=== PATIENT | female | born 1940 | race Caucasian/White ===

== ENCOUNTER → 2017-10-01 | Outpatient (CLI) | payer MEDICARE, BC ==
--- NOTE | 2017-10-01 07:53 | CT ---
EXAMINATION TYPE: CT brain wo con DATE OF EXAM: 10/01/2017 HISTORY: Mild cognitive impairment per order. Change in memory and forgetfulness per patient. CT DLP: 1054.2 mGycm. Automated Exposure Control for Dose Reduction was Utilized. TECHNIQUE: CT scan of the head is performed without contrast. COMPARISON: None. FINDINGS: There is no acute intracranial hemorrhage or midline shift identified. There is diffuse v entricular and sulcal prominence consistent with diffuse age-related cerebral atrophy. There is low- attenuation in the periventricular presumed on basis of product of chronic small vessel ischemic johnson ge. Scleral calcification both globes is present. There is persistent anterior metopic suture parvez l variant. The paranasal sinuses are clear. No suspicious opacification mastoid air cells is present. IMPRESSION: No acute intracranial hemorrhage or midline shift. There is mild to moderate diffuse ag e-related cerebral atrophy and moderate chronic small vessel ischemic change noted.
== END | disposition home or self-care (01) ==
LOC: RADCTMAIN 07:12
PROVIDERS: ATTEND Internal Medicine
DX: G31.1 Senile degeneration of brain, not elsewhere classified (principal); I67.82 Cerebral ischemia
CPT/HCPCS: 70450

== ENCOUNTER → 2020-01-04 | Outpatient (CLI) | payer MEDICARE, BC ==
--- NOTE | 2020-01-04 16:19 | BD ---
EXAMINATION TYPE: Axial Bone Density DATE OF EXAM: 01/04/2020 COMPARISON: NONE CLINICAL HISTORY: 79-year-old female postmenopausal screening Height: 5 FT Weight: 12 FRAX RISK QUESTIONS: Alcohol (3 or more units per day): NO Family History (Parent hip fracture): NO Glucocorticoids (More than 3mos): NO (Ex: prednisone, prednisolone, methylprednisolone, dexamethasone, and hydrocortisone). History of Fracture in Adulthood: NO Secondary Osteoporosis: 1. Type 1 Diabetes: NO 2. Hyperthyroidism: NO 3. Menopause before 45: UNSURE 4. Malnutrition: NO 5. Chronic liver disease: NO Rheumatoid Arthritis: NO Current Tobacco Use: NO RISK FACTORS HISTORY OF: Family History of Osteoporosis: NO Active: YES Diet low in dairy products/other sources of calcium: NO Postmenopausal woman: UNSURE Take estrogen and/or progesterone medications: NONE Lost more than 2 inches in height since high school: NO MEDICATIONS: Additional Medications: NONE Additional History: EXAM MEASUREMENTS: Bone mineral densitometry was performed using the [employer] System. Bone mineral density as measured about the Lumbar spine is: ----- L1-L4(G/cm2): 0.999 T Score Values are as follows: ----- L2: -1.4 ----- L3: -1.3 ----- L4: -1.4 ----- L1-L4: -1.5 BASELINE Bone mineral density about the R hip (g/cm2): 0.747 Bone mineral density about the L hip (g/cm2): 0.772 T Score values are as follows: -----R Neck: -2.1 -----L Neck: -1.9 -----R Total: -1.6 -----L Total: -1.2 BASELINE IMPRESSION: Osteopenia (T Score between -2.5 and -1). There is slightly increased risk of fracture and the patient may be considered for treatment. Re-Screen 2-5 years. NOTE: T-SCORE=SD OF THE YOUNG ADULT MEAN.
--- NOTE | 2020-01-05 12:02 | MM ---
Reason for exam: screening (asymptomatic). Last mammogram was performed 7 years and 5 months ago. History: Patient is postmenopausal. Physical Findings: A clinical breast exam by your physician is recommended on an annual basis and results should be correlated with mammographic findings. MG 3D Screening Mammo W/Cad Bilateral CC and MLO view(s) were taken. Prior study comparison: August 03, 2012, mammogram, performed at [facility]. August 08, 2011, mammogram, performed at [facility]. The breast tissue is heterogeneously dense. This may lower the sensitivity of mammography. Finding #1: There is a 9 mm oval mass located 5 cm from the nipple in the upper outer quadrant, middle position of the left breast on MLO 17/51 and CC 18/57. Finding #2: There are typically benign vascular calcifications in both breasts. ASSESSMENT: Incomplete: need additional imaging evaluation, BI-RAD 0 RECOMMENDATION: Ultrasound of the left breast. [facility] will attempt to contact patient to return for ultrasound.
== END | disposition home or self-care (01) ==
LOC: RADMAMWWP 09:55
PROVIDERS: ATTEND Internal Medicine
DX: Z12.31 Encounter for screening mammogram for malignant neoplasm of breast (principal); M85.80 Other specified disorders of bone density and structure, unspecified site
CPT/HCPCS: 77063; 77067; 77080

== ENCOUNTER → 2020-01-06 | Outpatient (CLI) | payer MEDICARE, BC ==
--- NOTE | 2020-01-06 13:56 | USB ---
Reason for exam: additional evaluation requested from abnormal screening. History: Patient is postmenopausal. Physical Findings: Nurse did not find any significant physical abnormalities on exam. US Breast Workup Limited LT Technologist: Cara Garcia Left limited breast ultrasound including focal area of concern, retroareolar and axilla demonstrates a 0.4 x 0.6 x 0.3cm hypoechoic lesion at 2 o'clock. These results were verbally communicated with the patient and result sheet given to the patient on 01/06/20. ASSESSMENT: Benign, BI-RAD 2 RECOMMENDATION: Return to routine screening mammogram schedule for both breasts.
== END | disposition home or self-care (01) ==
LOC: RADUSWWP 12:47
PROVIDERS: ATTEND Internal Medicine
DX: R92.8 Other abnormal and inconclusive findings on diagnostic imaging of breast (principal)

== ENCOUNTER 2021-02-08 16:32 | Inpatient (IN) | payer MEDICARE, BC ==
[2021-02-08] MEDS ORDERED: DILTIAZEM 5 MG/ML 5 ML VIAL IVP STA (19:00)
[2021-02-08] MEDS ORDERED: HEPARIN SODIUM 1,000 UN/ML (10ML VL) IV PRN (19:06)
[2021-02-08] MEDS ORDERED: HEPARIN SODIUM 1,000 UN/ML (10ML VL) IV ONE (19:06)
--- NOTE | 2021-02-08 19:09 | XR ---
INDICATION: Patient age:Female; 80 years old; Reason for study: dysrhythmia; PHH. COMPARISON: None. TECHNIQUE: Frontal and lateral views of the chest. FINDINGS: Lungs/Pleura: There is no evidence of pleural effusion, focal consolidation, or pneumothorax. Pulmonary vascularity: Unremarkable. Heart/mediastinum: Cardiomediastinal silhouette is unremarkable. Musculoskeletal: No acute osseous pathology. IMPRESSION: No acute cardiopulmonary disease/process.
[2021-02-08] MEDS ORDERED: DILTIAZEM 125 MG in SODIUM CHLORIDE 0.9% 100 ML IV SCH (19:15)
[2021-02-08] MEDS ORDERED: HEPARIN SOD,PORK IN 0.45% NACL 25,000 UNIT in 0.45% NACL 1 250ML.BAG IV SCH (19:15)
[2021-02-08 19:20] LABS: Basophils # (A) 0.1 k/uL (0-0.2); Basophils % (A) 1 %; Eosinophils # (A) 0.1 k/uL (0-0.7); Eosinophils % (A) 2 %; HCT 46.8 % (34.0-46.0); HGB 15.1 gm/dL (11.4-16.0); Lymphocytes # (A) 2.1 k/uL (1.0-4.8); Lymphocytes % (A) 35 %; MCH 30.4 pg (25.0-35.0); MCHC 32.3 g/dL (31.0-37.0); MCV 94.1 fL (80.0-100.0); Mean Platelet Volume 7.4; Monocytes # (A) 0.2 k/uL (0-1.0); Monocytes % (A) 4 %; Neutrophils # (A) 3.4 k/uL (1.3-7.7); Neutrophils % (A) 57 %; Platelet Count 279 k/uL (150-450); RBC 4.97 m/uL (3.80-5.40); RDW 13.9 % (11.5-15.5); WBC 6.1 k/uL (3.8-10.6)
[2021-02-08 19:30] LABS: Albumin 4.5 g/dL (3.5-5.0); Calcium 9.9 mg/dL (8.4-10.2); Magnesium 1.9 mg/dL (1.6-2.3); Potassium 4.1 mmol/L (3.5-5.1); Total Bilirubin 0.3 mg/dL (0.2-1.3); Total Protein 7.4 g/dL (6.3-8.2)
[2021-02-08 19:32] LABS: Partial Thromboplastin Time 24.7 sec (22.0-30.0); Prothrombin Time 10.6 sec (9.0-12.0)
[2021-02-08] MEDS ORDERED: ACETAMINOPHEN TAB 325 MG TAB PO PRN (20:27)
[2021-02-08] MEDS ORDERED: NALOXONE 0.4 MG/ML 1 ML VIAL IV PRN (20:27)
[2021-02-08] MEDS ORDERED: ASPIRIN 81 MG PO STA (20:27)
[2021-02-08] MEDS ORDERED: DONEPEZIL 10 MG TAB PO SCH (21:00)
--- NOTE | 2021-02-08 21:16 | ED ---
General Adult HPI - General Chief complaint: Arrhythmia/Palpitations Stated complaint: Irregular HB Time Seen by Provider: 02/08/21 18:48 Source: patient, family, RN notes reviewed, old records reviewed Mode of arrival: ambulatory Limitations: no limitations - History of Present Illness Initial comments: Patient is an 80-year-old female with past medical history remarkable for hypertension, dementia, hyperlipidemia who presents emergency Department after being sent by her PCP for new onset atrial fibrillation with RVR. I evaluated the patient when she was placed in a room. She is no history of A. fib with RVR. She has no symptoms at this time. Denies any chest pain, shortness breath, abdominal pain, nausea, vomiting. Denies any lightheadedness, syncopal episodes. Patient presents with her states she does have some level of dementia. However patient appears to be alert and oriented 4 at this time. She is no other acute complaints at this time. Patient did received the Covid 19 vaccine. Denies any fevers, chills, cough. No history of blood clots in herself or family members. - Related Data Home Medications Medication Instructions Recorded Confirmed Aspirin EC [Ecotrin Low Dose] 81 mg PO DAILY 02/08/21 02/08/21 Atorvastatin [Lipitor] 20 mg PO DAILY 02/08/21 02/08/21 Benazepril [Lotensin] 10 mg PO DAILY 02/08/21 02/08/21 Cholecalciferol [Vitamin D3 (25 50 mcg PO DAILY 02/08/21 02/08/21 Mcg = 1000 Iu)] Donepezil HCl [Aricept] 10 mg PO HS 02/08/21 02/08/21 Metoprolol Tartrate 25 mg PO DAILY 02/08/21 02/08/21 Allergies Allergy/AdvReac Type Severity Reaction Status Date / Time No Known Allergies Allergy Verified 02/08/21 20:25 Review of Systems ROS Statement: Those systems with pertinent positive or pertinent negative responses have been documented in the HPI. Review of Systems: CONST: Denies fever EYES: Denies blurry vision ENT: Denies nasal congestion C/V: Denies Chest pain RESP: Denies shortness of breath GI: Denies abdominal pain : Denies dysuria SKIN: Denies rash. MSK: Denies joint pain. NEURO: Denies headache ROS Other: All systems not noted in ROS Statement are negative. Past Medical History Past Medical History: Dementia, Hyperlipidemia, Hypertension History of Any Multi-Drug Resistant Organisms: None Reported Additional Past Surgical History / Comment(s): carotid surgery Past Psychological History: No Psychological Hx Reported Smoking Status: Never smoker Past Alcohol Use History: None Reported Past Drug Use History: None Reported General Exam - General Exam Comments Initial Comments: General: Appears in no acute distress. HEAD: Normal with no signs of head trauma. EYES: PERRLA, EOMI, conjunctiva normal, no discharge. ENT: Hearing grossly intact, normal oropharynx. RESPIRATORY: Clear breath sounds bilaterally. No wheezes, rales, or rhonchi. C/V: Irregular rate and rhythm. S1 and S2 auscultated. Peripheral pulses are 2+ and intact throughout. No peripheral edema. ABD: Abd is soft, nontender, nondistended EXT: Normal range of motion, no obvious deformity SKIN: No rashes or lesions observed on exposed skin. NEURO: Alert and oriented 3-4. No focal deficits. Limitations: no limitations Course Vital Signs 02/08/21 02/08/21 02/08/21 17:55 19:09 21:06 Temperature 98 F Pulse Rate 144 H 110 H 133 H Respiratory 16 18 18 Rate Blood Pressure 165/89 159/88 151/82 O2 Sat by Pulse 98 96 96 Oximetry 02/08/21 02/08/21 22:26 23:20 Temperature Pulse Rate 146 H 140 H Respiratory 18 18 Rate Blood Pressure 172/105 119/97 O2 Sat by Pulse 97 95 Oximetry Medical Decision Making - Medical Decision Making Based on the patient's presentation and physical exam, I'm concerned for atrial fibrillation with RVR. EKG was immediately obtained when she was placed in a room and revealed atrial fibrillation with RVR. There is no signs of acute ischemia. We will obtain a cardiac workup on the patient as well as a d-dimer screen for PE for her new-onset afib. It is possible that the patient has been in atrial fibrillation for quite some time as she has been asymptomatic. We will also obtain a chest x-ray. She will be given aspirin. She'll be started o n a heparin drip as well as given 10 mg IV push Cardizem and started on a Cardizem drip with goal heart rates less than 110. Patient was in agreement this plan. EKG showed atrial fibrillation with RVR as described above. Cardizem bolus drop the patient's heart rate low 100. She remained relatively volatile with heart rates ranging anywhere from 80-140 intermittently. We will continue to increase the Cardizem drip with goal heart rates less than 110. Laboratory studies are remarkable for a normal d-dimer. Troponin is negative. We will continue to trend troponins. Negative Covid. Remainder the labs are unremarkable. Chest x-ray reveals no acute cardiopulmonary process. On reevaluation, patient is feeling improved. Heart rate is improved to 110 at this time. I discussed with family that she will be admitted to the hospital and patient and were in agreement this plan. Cardiology was consulted for evaluation of the patient tomorrow. I spoke with the admitting team under Dr. Peña who accepted the patient. Patient was admitted and serous condition to telemetry. I'll patient remained in the emergency department, after her left she to begin to and became more confused. Heart rates jumped back up into 140-150. However we were able to calm the patient down, and heart rates began to slowly improving trend back down over time. We'll continue to increase Cardizem drip as tolerated with goal heart rates less than 110. - Lab Data Result diagrams: 02/08/21 18:34 02/08/21 18:34 Lab Results 02/08/21 02/08/21 02/08/21 Range/Units 18:34 18:34 18:34 WBC 6.1 (3.8-10.6) k/uL RBC 4.97 (3.80-5.40) m/uL Hgb 15.1 (11.4-16.0) gm/dL Hct 46.8 H (34.0-46.0) % MCV 94.1 (80.0-100.0) fL MCH 30.4 (25.0-35.0) pg MCHC 32.3 (31.0-37.0) g/dL RDW 13.9 (11.5-15.5) % Plt Count 279 (150-450) k/uL MPV 7.4 Neutrophils % 57 % Lymphocytes % 35 % Monocytes % 4 % Eosinophils % 2 % Basophils % 1 % Neutrophils # 3.4 (1.3-7.7) k/uL Lymphocytes # 2.1 (1.0-4.8) k/uL Monocytes # 0.2 (0-1.0) k/uL Eosinophils # 0.1 (0-0.7) k/uL Basophils # 0.1 (0-0.2) k/uL PT 10.6 (9.0-12.0) sec INR 1.0 (<1.2) APTT 24.7 (22.0-30.0) sec D-Dimer 0.21 (<0.60) mg/L FEU Sodium 141 (137-145) mmol/L Potassium 4.1 (3.5-5.1) mmol/L Chloride 102 (98-107) mmol/L Carbon Dioxide 29 (22-30) mmol/L Anion Gap 10 mmol/L BUN 24 H (7-17) mg/dL Creatinine 0.88 (0.52-1.04) mg/dL Est GFR (CKD-EPI)AfAm 72 (>60 ml/min/1.73 sqM) Est GFR (CKD-EPI)NonAf 62 (>60 ml/min/1.73 sqM) Glucose 134 H (74-99) mg/dL Calcium 9.9 (8.4-10.2) mg/dL Magnesium 1.9 (1.6-2.3) mg/dL Total Bilirubin 0.3 (0.2-1.3) mg/dL AST 28 (14-36) U/L ALT 16 (4-34) U/L Alkaline Phosphatase 133 H (38-126) U/L Troponin I (0.000-0.034) ng/mL Total Protein 7.4 (6.3-8.2) g/dL Albumin 4.5 (3.5-5.0) g/dL 02/08/21 Range/Units 18:34 WBC (3.8-10.6) k/uL RBC (3.80-5.40) m/uL Hgb (11.4-16.0) gm/dL Hct (34.0-46.0) % MCV (80.0-100.0) fL MCH (25.0-35.0) pg MCHC (31.0-37.0) g/dL RDW (11.5-15.5) % Plt Count (150-450) k/uL MPV Neutrophils % % Lymphocytes % % Monocytes % % Eosinophils % % Basophils % % Neutrophils # (1.3-7.7) k/uL Lymphocytes # (1.0-4.8) k/uL Monocytes # (0-1.0) k/uL Eosinophils # (0-0.7) k/uL Basophils # (0-0.2) k/uL PT (9.0-12.0) sec INR (<1.2) APTT (22.0-30.0) sec D-Dimer (<0.60) mg/L FEU Sodium (137-145) mmol/L Potassium (3.5-5.1) mmol/L Chloride (98-107) mmol/L Carbon Dioxide (22-30) mmol/L Anion Gap mmol/L BUN (7-17) mg/dL Creatinine (0.52-1.04) mg/dL Est GFR (CKD-EPI)AfAm (>60 ml/min/1.73 sqM) Est GFR (CKD-EPI)NonAf (>60 ml/min/1.73 sqM) Glucose (74-99) mg/dL Calcium (8.4-10.2) mg/dL Magnesium (1.6-2.3) mg/dL Total Bilirubin (0.2-1.3) mg/dL AST (14-36) U/L ALT (4-34) U/L Alkaline Phosphatase (38-126) U/L Troponin I <0.012 (0.000-0.034) ng/mL Total Protein (6.3-8.2) g/dL Albumin (3.5-5.0) g/dL - EKG Data -: EKG Interpreted by Me EKG Comments: 12-lead Electrocardiogram Interpretation Note EKG was reviewed and interpreted by myself. 12-lead ECG performed at 1834 is interpreted by me as revealing atrial fibrillation with RVR at a rate of 148 beats per minute. [place] is normal. PA interval is unobtainable, QRS duration is 80 ms, QTc is 401 ms.. There were no ST or T wave abnormalities to suggest myocardial ischemia or injury. R wave progression across the precordium was satisfactory. By my interpretation this EKG is non-diagnostic for acute ischemia. This is concerning for new onset atrial fibrillation with RVR, the patient is no history. Critical Care Time Critical Care Time: Yes Total Critical Care Time: 35 Critical Care Time: Upon my evaluation, this patient had a high probability of imminent or life-t hreatening deterioration due to A. fib with RVR, which required my direct attention, intervention, and personal management. I have personally provided 35 minutes of critical care time exclusive of time spent on separately billable procedures. Time includes review of laboratory data, radiology results, discussion with consultants, and monitoring for potential decompensation. Interventions were performed as documented in my note. Disposition Clinical Impression: Atrial fibrillation with RVR, Dementia Disposition: ADMITTED IP TO THIS HOSP Condition: Serious
[2021-02-08] MEDS ORDERED: LORazepam 2 MG/ML INJ IV STA (22:16)
--- NOTE | 2021-02-09 01:38 | P.HPIM ---
History of Present Illness H&P Date: 02/08/21 Chief Complaint: A. fib with RVR 80-year-old female with dementia hypertension hyperlipidemia She has dementia and cannot provide any meaningful history. She currently tells me that she doesn't know where she is or how she got to the hospital. She recalls that she was visiting [facility] for some reason and she hasn't seen her for couple days and she went out looking for him and next thing she knows that she is at the hospital. However per ED documentation, patient was brought in by her as they were at their PCP office who was suspicious of A. fib with RVR this is a new diagnosis to the patient and recommended that she comes to the hospital for evaluation. Currently patient denies any chest pain or trouble breathing she denies any dizziness or lightheadedness she just went to the bathroom came back and her heart has jumped up into the 130s 140s range, she is currently on heparin drip and Cardizem drip Patient denies any GI bleeding denies any recent travel denies any history of blood clots denies any recent hospitalization or any active cancer diagnosis Review of Systems Pertinent positives as noted in HPI. All other systems were reviewed and are negative Past Medical History Past Medical History: Dementia, Hyperlipidemia, Hypertension History of Any Multi-Drug Resistant Organisms: None Reported Additional Past Surgical History / Comment(s): carotid surgery Past Psychological History: No Psychological Hx Reported Smoking Status: Never smoker Past Alcohol Use History: None Reported Past Drug Use History: None Reported - Past Family History Family Family Medical History: No Reported History Medications and Allergies Home Medications Medication Instructions Recorded Confirmed Type Aspirin EC [Ecotrin Low Dose] 81 mg PO DAILY 02/08/21 02/08/21 History Atorvastatin [Lipitor] 20 mg PO DAILY 02/08/21 02/08/21 History Benazepril [Lotensin] 10 mg PO DAILY 02/08/21 02/08/21 History Cholecalciferol [Vitamin D3 (25 50 mcg PO DAILY 02/08/21 02/08/21 History Mcg = 1000 Iu)] Donepezil HCl [Aricept] 10 mg PO HS 02/08/21 02/08/21 History Metoprolol Tartrate 25 mg PO DAILY 02/08/21 02/08/21 History Allergies Allergy/AdvReac Type Severity Reaction Status Date / Time No Known Allergies Allergy Verified 02/08/21 20:25 Physical Exam Vitals: Vital Signs Temp Pulse Resp BP Pulse Ox 02/08/21 19:09 110 H 18 159/88 96 02/08/21 17:55 98 F 144 H 16 165/89 98 Intake and Output 02/08/21 02/08/21 02/08/21 06:59 14:59 22:59 Other: Weight 60.328 kg Constitutional: No acute distress, conversant, pleasant Eyes: Anicteric sclerae, moist conjunctiva, Pupils equal round reactive to light ENMT: NC/AT Oropharynx clear, no erythema, or exudates Neck: Supple, FROM, no masses, or JVD No carotid bruits No thyromegaly Lungs: Clear to auscultation Clear to percussion Normal respiratory effort, no accessory muscle use Cardiovascular: Heart irregular No murmurs, gallops, or rubs No peripheral edema Abdominal: Soft Nontender, no guarding, rebound or rigidity Abdomen moving with respiration Normoactive bowel sounds No hepatomegaly, No splenomegaly No palpable mass No abdominal wall hernia noted Skin: Normal temperature, tone, texture, turgor No induration No subcutaneous nodules No rash, lesions No ulcers Extremities: No digital cyanosis No clubbing Pedal pulses intact and symmetrical Radial pulses intact and symmetrical No calf tenderness Psychiatric: Alert and oriented to person, only Neuro Muscles Strength 4/5 in all 4 extremities Sensation to light touch grossly present throughout Cranial nerves II-XII grossly intact No focal sensory deficits Lymphatics: no palpable cervical or supraclavicular , or inguinal lymph nodes Results CBC & Chem 7: 02/08/21 18:34 02/08/21 18:34 Labs: Abnormal Lab Results - Last 24 Hours (Table) 02/08/21 02/08/21 Range/Units 18:34 18:34 Hct 46.8 H (34.0-46.0) % BUN 24 H (7-17) mg/dL Glucose 134 H (74-99) mg/dL Alkaline Phosphatase 133 H (38-126) U/L Assessment and Plan Assessment: New onset A. fib with RVR Check echocardiogram Check thyroid function Cardiology consult Currently on heparin drip and Cardizem drip Check lipid profile D-dimer within normal limits Cardiac telemetry IV fluid hydration normal saline Chronic conditions Hypertension resume blood pressure medications Dementia Hyperlipidemia Resume home medications She is full code DVT Prophylaxis currently on heparin drip for A. fib with RVR Anticipated length of stay less than 2 midnights
[2021-02-09 04:38] VITALS: RESP 18
[2021-02-09 07:06] LABS: Basophils # (A) 0.1 k/uL (0-0.2); Basophils % (A) 1 %; Eosinophils # (A) 0.1 k/uL (0-0.7); Eosinophils % (A) 1 %; HCT 41.7 % (34.0-46.0); HGB 13.3 gm/dL (11.4-16.0); Lymphocytes # (A) 2.4 k/uL (1.0-4.8); Lymphocytes % (A) 35 %; MCH 30.1 pg (25.0-35.0); MCHC 31.9 g/dL (31.0-37.0); MCV 94.4 fL (80.0-100.0); Mean Platelet Volume 7.6; Monocytes # (A) 0.3 k/uL (0-1.0); Monocytes % (A) 5 %; Neutrophils # (A) 3.7 k/uL (1.3-7.7); Neutrophils % (A) 56 %; Platelet Count 230 k/uL (150-450); RBC 4.42 m/uL (3.80-5.40); WBC 6.7 k/uL (3.8-10.6)
[2021-02-09 07:13] LABS: Calcium 9.4 mg/dL (8.4-10.2); Magnesium 1.8 mg/dL (1.6-2.3); Potassium 4.1 mmol/L (3.5-5.1)
[2021-02-09 07:22] LABS: Prothrombin Time 11.1 sec (9.0-12.0)
[2021-02-09] MEDS ORDERED: METOPROLOL SUCCINATE (ER) 50 MG TAB.ER.24H PO SCH (09:00)
[2021-02-09] MEDS ORDERED: ATORVASTATIN 20 MG TAB PO SCH (09:00)
[2021-02-09] MEDS ORDERED: ASPIRIN 81 MG PO SCH (09:00)
[2021-02-09] MEDS ORDERED: lisinopriL 10 MG TAB PO SCH (09:00)
[2021-02-09] MEDS ORDERED: METOPROLOL TARTRATE 25 MG TAB PO SCH (09:00)
--- NOTE | 2021-02-09 09:35 | P.CRDCN ---
History of Present Illness Consult date: 02/09/21 History of present illness: HISTORY OF PRESENT ILLNESS: This is a 80-year-old female with a past medical history significant for hypertension, hyperlipidemia, and dementia. 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 We have been asked to see the patient in consultation for A. fib with RVR. Patient examined at the bedside in the emergency room. Patient has awake and alert at the time of examination. However she is confused. She thinks she is at home. She thinks she lives with her mom and dad. She is unsure of the date. She does not know why she is in the hospital and does not remember coming to the hospital yesterday. Apparently the patient was brought to the hospital with her after being directed to come to the emergency room by her primary care physician for new onset atrial fibrillation with RVR. EKG completed upon arrival to the emergency room revealed atrial fibrillation with RVR. The patient does not have a history of atrial fib relation. The patient was started on IV heparin and IV Cardizem. She has since converted to sinus mechanism with a heart rate in the 80s. The patient denies any chest pain or pressure. She denies shortness of breath. She currently denies palpitations. She does report that she thinks she had some palpitations yesterday. She denies frequent falls at home. Denies history of GI bleeding. EKG reveals A. fib with RVR. Telemetry this morning reveals sinus mechanism. Chest xray negative for acute process. Laboratory data: WBC 6.7. Hemoglobin 13.3. Platelet count 230. D-dimer 0.21. Sodium 139. Potassium 4.1. BUN 19. Creatinine 0.77. Magnesium 1.8. Troponin negative 3. Current home cardiac medications include metoprolol tartrate 25 mg daily, aspirin 81 mg daily, Benzapril 10 mg daily, Lipitor 20 mg daily REVIEW OF SYSTEMS: At the time of my exam: CONSTITUTIONAL: Denies fever or chills. HEENT: Denies blurred vision, vision changes, or eye pain. Denies hemoptysis CARDIOVASCULAR: Denies chest pain. Denies orthopnea. Denies PND. Denies palpitations RESPIRATORY: Denies shortness of breath. GASTROINTESTINAL: Denies abdominal pain. Denies nausea or vomiting. HEMATOLOGIC: Denies bleeding disorders. GENITOURINARY: Denies any blood in urine. SKIN: Denies pruitis. Denies rash. PHYSICAL EXAM: VITAL SIGNS: Reviewed. GENERAL: Well-developed in no acute distress. HEENT: Head is normocephalic. Pupils are equal, round. Sclerae anicteric. Mucous membranes of the mouth are moist. Neck supple. No JVD or thyromegaly LUNGS: Respirations even and unlabored. Lungs essentially clear to auscultation bilaterally. HEART: Regular rate and rhythm. S1 and S2 heard. ABDOMEN: Soft. Nondistended. Nontender. EXTREMITIES: Normal range of motion. No clubbing or cyanosis. Peripheral pulses intact. No lower extremity edema NEUROLOGIC: Awake and alert. Oriented x 0. ASSESSMENT: New onset paroxysmal atrial fibrillation with RVR Hypertension Hyperlipidemia Dementia PLAN: Obtain 2D echo to assess cardiac structure and function Discontinue IV heparin Begin Eliquis 2.5 mg twice a day. Case management consulted for insurance coverage Discontinue IV Cardizem Begin metoprolol succinate 50 mg daily Check TSH Patient may be discharged home this afternoon from a cardiac standpoint if her echo does not reveal any significant abnormalities Patient to follow up outpatient with Dr. Page Nurse practitioner note has been reviewed by physician. Signing provider agrees with the documented findings, assessment, and plan of care. Past Medical History Past Medical History: Dementia, Hyperlipidemia, Hypertension History of Any Multi-Drug Resistant Organisms: None Reported Additional Past Surgical History / Comment(s): carotid surgery Past Psychological History: No Psychological Hx Reported Smoking Status: Never smoker Past Alcohol Use History: None Reported Past Drug Use History: None Reported - Past Family History Family Family Medical History: No Reported History Medications and Allergies Home Medications Medication Instructions Recorded Confirmed Type Aspirin EC [Ecotrin Low Dose] 81 mg PO DAILY 02/08/21 02/08/21 History Atorvastatin [Lipitor] 20 mg PO DAILY 02/08/21 02/08/21 History Benazepril [Lotensin] 10 mg PO DAILY 02/08/21 02/08/21 History Cholecalciferol [Vitamin D3 (25 50 mcg PO DAILY 02/08/21 02/08/21 History Mcg = 1000 Iu)] Donepezil HCl [Aricept] 10 mg PO HS 02/08/21 02/08/21 History Metoprolol Tartrate 25 mg PO DAILY 02/08/21 02/08/21 History Apixaban [Eliquis] 5 mg PO BID #60 tab 02/09/21 Rx Allergies Allergy/AdvReac Type Severity Reaction Status Date / Time No Known Allergies Allergy Verified 02/08/21 20:25 Physical Exam Vitals: Vital Signs Temp Pulse Pulse Resp BP BP Pulse Ox 02/09/21 04:00 97.6 F 72 18 127/72 95 02/09/21 02:00 137 H 16 02/09/21 00:00 144 H 17 138/76 93 L 02/08/21 23:20 140 H 18 119/97 95 02/08/21 22:26 146 H 18 172/105 97 02/08/21 21:06 133 H 18 151/82 96 02/08/21 19:09 110 H 18 159/88 96 02/08/21 17:55 98 F 144 H 16 165/89 98 Intake and Output 02/08/21 02/09/21 02/09/21 22:59 06:59 14:59 Intake Total 16.083 68.842 Balance 16.083 68.842 Intake: Intake, IV Titration 16.083 68.842 Amount Diltiazem 125 mg In 16.083 9 Sodium Chloride 0.9% 100 ml @ Per Protocol IV .Q0M [facility] Rx#:[id number] Heparin Sod,Pork in 0.45% 59.842 NaCl 25,000 unit In 0.45 % NaCl 1 250ml.bag @ 12 UNITS/KG/HR 7.239 mls/hr IV .Q24H [facility] Rx#: [id number] Other: Voiding Method Toilet # Voids 1 Weight 60.328 kg Results 02/09/21 06:17 02/09/21 06:17 Cardiac Enzymes 02/08/21 02/08/21 02/08/21 Range/Units 18:34 18:34 20:47 AST 28 (14-36) U/L Troponin I <0.012 <0.012 (0.000-0.034) ng/mL 02/09/21 Range/Units 01:25 AST (14-36) U/L Troponin I <0.012 (0.000-0.034) ng/mL Coagulation 02/08/21 02/09/21 02/09/21 Range/Units 18:34 01:25 06:17 PT 10.6 11.1 (9.0-12.0) sec APTT 24.7 98.9 H (22.0-30.0) sec CBC 02/08/21 02/09/21 Range/Units 18:34 06:17 WBC 6.1 6.7 (3.8-10.6) k/uL RBC 4.97 4.42 (3.80-5.40) m/uL Hgb 15.1 13.3 (11.4-16.0) gm/dL Hct 46.8 H 41.7 (34.0-46.0) % Plt Count 279 230 (150-450) k/uL Comprehensive Metabolic Panel 02/08/21 02/09/21 Range/Units 18:34 06:17 Sodium 141 139 (137-145) mmol/L Potassium 4.1 4.1 (3.5-5.1) mmol/L Chloride 102 107 (98-107) mmol/L Carbon Dioxide 29 28 (22-30) mmol/L BUN 24 H 19 H (7-17) mg/dL Creatinine 0.88 0.77 (0.52-1.04) mg/dL Glucose 134 H 93 (74-99) mg/dL Calcium 9.9 9.4 (8.4-10.2) mg/dL AST 28 (14-36) U/L ALT 16 (4-34) U/L Alkaline Phosphatase 133 H (38-126) U/L Total Protein 7.4 (6.3-8.2) g/dL Albumin 4.5 (3.5-5.0) g/dL Current Medications Generic Name Dose Route Start Last Admin Trade Name Freq PRN Reason Stop Dose Admin Acetaminophen 650 mg 02/08/21 20:27 Acetaminophen Tab 325 Mg Tab PO Q6HR PRN Mild Pain or Fever > 100.5 Aspirin 81 mg 02/09/21 09:00 Aspirin 81 Mg PO DAILY [facility] Atorvastatin Calcium 20 mg 02/09/21 09:00 Atorvastatin 20 Mg Tab PO DAILY [facility] Donepezil HCl 10 mg 02/08/21 21:00 02/08/21 22:28 Donepezil 10 Mg Tab PO 10 mg HS [facility] Administration Heparin Sodium (Porcine) 0 unit 02/08/21 19:06 Heparin Sodium 1,000 Un/Ml (10ml Vl) IV PER PROTOCOL PRN Low PTT Protocol Diltiazem HCl 125 mg/ Sodium 125 mls @ 0 mls/hr 02/08/21 19:15 02/08/21 23:21 Chloride IV 12.5 mls/hr .Q0M [facility] 12.5 mls/hr Titration Protocol Per Protocol Heparin Sodium/Sodium Chloride 250 mls @ 7.239 mls/hr 02/08/21 19:15 02/09/21 05:28 25,000 unit/ Sodium Chloride IV 9 units/kg/hr .Q24H [facility] 5.43 mls/hr Titration Protocol 12 UNITS/KG/HR Naloxone HCl 0.2 mg 02/08/21 20:27 Naloxone 0.4 Mg/Ml 1 Ml Vial IV Q2M PRN Opioid Reversal Intake and Output 02/08/21 02/09/21 02/09/21 22:59 06:59 14:59 Intake Total 16.083 68.842 Balance 16.083 68.842 Intake: Intake, IV Titration 16.083 68.842 Amount Diltiazem 125 mg In 16.083 9 Sodium Chloride 0.9% 100 ml @ Per Protocol IV .Q0M [facility] Rx#:[id number] Heparin Sod,Pork in 0.45% 59.842 NaCl 25,000 unit In 0.45 % NaCl 1 250ml.bag @ 12 UNITS/KG/HR 7.239 mls/hr IV .Q24H [facility] Rx#: [id number] Other: Voiding Method Toilet # Voids 1 Weight 60.328 kg 02/09/21 06:17 02/09/21 06:17
[2021-02-09] MEDS ORDERED: APIXABAN 2.5 MG TABLET PO SCH (09:45)
--- NOTE | 2021-02-09 12:39 | ECHOF ---
Referral Reason:LV function, new onset afib MEASUREMENTS -------- HEIGHT: 152.4 cm WEIGHT: 60.3 kg BP: IVSd: 1.0 cm (0.6 - 1.1) LVIDd: 3.4 cm (3.9 - 5.3) LVPWd: 1.1 cm (0.6 - 1.1) EDV(Teich): 48 ml IVSs: 1.6 cm LVIDs: 1.3 cm LVPWs: 1.3 cm %IVS Thck: 56 % ESV(Teich): 4 ml EF(Teich): 91 % %FS: 62 % SV(Teich): 44 ml RVIDd: 1.5 cm (< 3.3) LALs A4C: 4.8 cm LAAs A4C: 16.8 cm LAESV A-L A4C: 50 ml LAESV MOD A4C: 46 ml LALs A2C: 4.8 cm LAAs A2C: 15.8 cm LAESV A-L A2C: 44 ml LAESV MOD A2C: 42 ml LAESV(A-L): 47 ml Ao Diam: 2.4 cm (2.0 - 3.7) LA Diam: 3.3 cm (2.7 - 3.8) AV Cusp: 1.3 cm (1.5 - 2.6) EPSS: 0.5 cm MV E Xiang: 1.35 m/s MV DecT: 230 ms MV Dec [place]: 5.8 m/s MV A Xiang: 0.93 m/s MV E/A Ratio: 1.45 MV PHT: 67 ms MR Vmax: 2.36 m/s MR maxP.25 mmHg LVOT Vmax: 1.13 m/s LVOT maxP.13 mmHg AV Vmax: 1.99 m/s AV maxP.01 mmHg AV Vmax: 1.59 m/s AV Vmean: 1.15 m/s AV maxP.34 mmHg AV meanP.76 mmHg AV Env.Ti: 315 ms AV VTI: 36.2 cm TR Vmax: 2.59 m/s TR maxP.78 mmHg RAP: 5.00 mmHg RVSP: 31.78 mmHg MV EF SLOPE: 239.79 mm/s (70 - 150) MV EXCURSION: 11.84 mm (> 18.000) FINDINGS -------- Atrial fibrillation. This was a technically good study. The left ventricular size is normal. Left ventricular wall thickness is normal. Overall left vent ricular systolic function is normal with, an EF between 55 - 60 %. Normal LAP Grade 1 Diastolic Dys function. The right ventricle is normal in size. The left atrial size is normal. Normal LA size by volume 22+/-6 ml/m2. The right atrial size is normal. Aortic valve is trileaflet and is mildly thickened. There is mild aortic stenosis present. Peak/m misty gradient across the Aortic Valve is 13.34mmHg / 7.76mmHg. The mitral valve is normal. The mitral valve leaflets are mildly thickened. Mild mitral regurgita tion is present. The tricuspid valve appears structurally normal. Mild tricuspid regurgitation present. Right vent ricular systolic pressure is normal at < 35 mmHg. There is no pulmonic regurgitation present. The aortic root size is normal. IVC Not well visulized. There is a trivial pericardial effusion present. CONCLUSIONS -------- 1. The left ventricular size is normal. 2. Left ventricular wall thickness is normal. 3. Overall left ventricular systolic function is normal with, an EF between 55 - 60 %. 4. Normal LAP Grade 1 Diastolic Dysfunction. 5. Aortic valve is trileaflet and is mildly thickened. 6. There is mild aortic stenosis present. 7. Peak/mean gradient across the Aortic Valve is 13.34mmHg / 7.76mmHg. 8. The mitral valve leaflets are mildly thickened. 9. Mild mitral regurgitation is present. 10. Mild tricuspid regurgitation present. 11. There is a trivial pericardial effusion present. FEEDER CATCHER: Sariah Farias RDCS
[2021-02-09 15:20] VITALS: BP 128/69; PULSE 60; TEMP 98.2
--- NOTE | 2021-02-09 15:21 | P.DS ---
Providers Date of admission: 02/08/21 20:27 Expected date of discharge: 02/09/21 Attending physician: Shantanu Peña MD Consults: 02/08/21 20:28 Consult Physician Routine Consulting Provider: [facility] Consult Reason/Comments: new onset afib with rvr Do you want consulting provider notified?: Yes, Notify in am Primary care physician: Efrain Dennis MD Hospital Course: 80-year-old female with dementia hypertension hyperlipidemia was brought in by her as they were at their PCP office who was suspicious of A. fib with RVR this is a new diagnosis to the patient and recommended that she comes to the hospital for evaluation. New onset A. fib with RVR Cardiology consulted. Pt placed on dilt gtt and heparin gtt. TSH was normal. Echo with normal EF, no WMA, mild valvular disease. Hep gtt transitioned to eliquis. Dilt gtt d/c'd after patient converted to NSR with PACs, and her home metoprolol tartrate was replaced with succinate and dose increased to 50mg. Pt discharged home with home care services and PCP/Cardiology f/u. Chronic conditions Hypertension resumed blood pressure medications on discharge Dementia Hyperlipidemia Resumed home medications on discharge with changes noted above. Assessment: Gen: awake, alert HEENT: normocephalic, atraumatic, good hearing acuity, moist mucous membranes Resp: good air exchange, breathing comfortably with no accessory muscle use CVS: good distal perfusion x 4, irregular rhythm GI: soft, NTTP, ND : no SPT, no CVAT, crespo catheter not present MSK: no pitting edema, no clubbing Neuro: non-focal, moving all extremities Psych: cooperative, euthymic mood Patient Condition at Discharge: Good Plan - Discharge Summary Discharge Rx Participant: No New Discharge Prescriptions: New Metoprolol Succinate (ER) [Toprol XL] 50 mg PO DAILY #30 tablet Apixaban [Eliquis] 2.5 mg PO BID #60 tab Continue Cholecalciferol [Vitamin D3 (25 Mcg = 1000 Iu)] 50 mcg PO DAILY Aspirin EC [Ecotrin Low Dose] 81 mg PO DAILY Donepezil HCl [Aricept] 10 mg PO HS Atorvastatin [Lipitor] 20 mg PO DAILY Benazepril [Lotensin] 10 mg PO DAILY Discontinued Metoprolol Tartrate 25 mg PO DAILY Discharge Medication List Aspirin EC [Ecotrin Low Dose] 81 mg PO DAILY 02/08/21 [History] Atorvastatin [Lipitor] 20 mg PO DAILY 02/08/21 [History] Benazepril [Lotensin] 10 mg PO DAILY 02/08/21 [History] Cholecalciferol [Vitamin D3 (25 Mcg = 1000 Iu)] 50 mcg PO DAILY 02/08/21 [History] Donepezil HCl [Aricept] 10 mg PO HS 02/08/21 [History] Apixaban [Eliquis] 2.5 mg PO BID #60 tab 02/09/21 [Rx] Metoprolol Succinate (ER) [Toprol XL] 50 mg PO DAILY #30 tablet 02/09/21 [Rx] Follow up Appointment(s)/Referral(s): Satnam Page MD [STAFF PHYSICIAN] - [facility], [NON-STAFF] - Activity/Diet/Wound Care/Special Instructions: DAYNE quintana will apply a free coupon for Eliquis for 1 month, after that your copay is $400. Speak with your microsoft application developer about other options before you run out of your free month of eliquis. Discharge Disposition: HOME WITH HOME HEALTH SERVICES
== END 2021-02-09 16:19 | disposition home health service (06) | DRG 310 ==
LOC: EC 16:32 → 3SCARD 20:27
PROVIDERS: ADMIT Internal Medicine; ATTEND Internal Medicine
DX: I48.0 Paroxysmal atrial fibrillation (principal); E78.5 Hyperlipidemia, unspecified; F03.90 Unspecified dementia, unspecified severity, without behavioral disturbance, psychotic disturbance, mood disturbance, and anxiety; I10 Essential (primary) hypertension; Z20.822 Contact with and (suspected) exposure to COVID-19; Z79.01 Long term (current) use of anticoagulants; Z79.82 Long term (current) use of aspirin; Z79.899 Other long term (current) drug therapy
CPT/HCPCS: 36415; 71046; 80048; 80053; 83735; 84443; 84484; 85025; 85379; 85610; 85730; 87635; 93005; 93306; 96365; 96366; 96368; 96375; 99291

== ENCOUNTER → 2021-03-13 | Outpatient (CLI) | payer MEDICARE, BC ==
--- NOTE | 2021-03-15 11:12 | MM ---
Reason for exam: screening (asymptomatic). Last mammogram was performed 1 year and 2 months ago. History: Patient is postmenopausal. Physical Findings: A clinical breast exam by your physician is recommended on an annual basis and results should be correlated with mammographic findings. MG 3D Screening Mammo W/Cad Bilateral CC and MLO view(s) were taken. Prior study comparison: January 04, 2020, bilateral MG 3d screening mammo w/cad. The breast tissue is heterogeneously dense. This may lower the sensitivity of mammography. There is chronic nodularity in the left upper outer quadrant. No significant changes when compared with prior studies. ASSESSMENT: Negative, BI-RAD 1 RECOMMENDATION: Routine screening mammogram of both breasts in 1 year.
== END | disposition home or self-care (01) ==
LOC: RADMAMWWP 06:59
PROVIDERS: ATTEND Internal Medicine
DX: Z12.31 Encounter for screening mammogram for malignant neoplasm of breast (principal)
CPT/HCPCS: 77063; 77067

== ENCOUNTER → 2021-04-05 | Outpatient (CLI) | payer MEDICARE, BC ==
--- NOTE | 2021-04-05 12:17 | XR ---
EXAMINATION TYPE: XR chest 2V DATE OF EXAM: 04/05/2021 COMPARISON: Chest x-ray February 08, 2021 HISTORY: Confusion and weakness. TECHNIQUE: Frontal and lateral views of the chest are obtained. FINDINGS: There is no focal air space opacity, pleural effusion, or pneumothorax seen. The cardiac silhouette size is now mildly enlarged. The osseous structures are intact. IMPRESSION: Mild cardiomegaly without acute pulmonary process.
== END | disposition home or self-care (01) ==
LOC: RADXRMAIN 11:43
PROVIDERS: ATTEND Internal Medicine
DX: I51.7 Cardiomegaly (principal)
CPT/HCPCS: 71046

== ENCOUNTER → 2022-03-07 | Day surgery (SDC) | payer MEDICARE, BC ==
[~2022-03-07] MED LIST: LIDOCAINE 2% INJ 20 MG/ML (2 ML VIAL) ONE; PROPOFOL 10 MG/ML 20 ML VIAL IV ONE; SODIUM CHLORIDE 0.9% 1,000 ML IV SCH
[2022-03-07 11:23] VITALS: RESP 16; TEMP 98.4
--- NOTE | 2022-03-07 12:27 | P.PCN ---
Date of Procedure: 03/07/22 Operative Findings: TRANSESOPHAGEAL ECHOCARDIOGRAM STILL OPERATOR BATCH OR CONTINUOUS: RADHA HARRIS MD, RPVI INDICATION: Rule out intracardiac thrombus before cardioversion SEDATION: Conscious sedation COMPLICATION: None LEVEL OF SEDATION The procedure was performed under general anesthesia PROCEDURE DESCRIPTION: After obtaining an informed consent, the patient was brought to recovery room. Pulse oximetry and heart monitors were attached to the patient. The patient throat was sprayed using lidocaine. The patient was turned into left lateral position. After that a bite guard was placed. After an appropriate conscious sedation was initiated, the transesophageal echocardiogram was advanced through a bite guard into the mid esophagus. A 2-D echocardiogram images, color Doppler images, continuous wave images, pulse-wave images, of various cardiac structure were performed. After that the transesophageal echocardiogram probe was advanced into the stomach and fixed to obtain transgastric view was. The probe was brought into the mid esophagus. Inter-atrial septum was interrogated using 2D images, color Doppler images, and then contrast study. After that transesophageal echocardiogram was withdrawn out and upon withdrawing the descending thoracic aorta all the way up to the arch was evaluated. FINDING: Left ventricular systolic function appeared to be mildly impaired was EF between 40-45%. The right ventricle appeared to be of normal size and function. The left atrium and right atrium are severely dilated. The left atrial appendage appeared to be free from any thrombus. The interatrial septum appeared to be in tact. The aortic valve is trileaflet valve with no stenosis with mild insufficiency. The mitral valve seems to be mildly thickened with evidence of moderate mitral regurgitation. There is moderate tricuspid regurgitation seen. CONCLUSION: 1. Intact left atrial appendage. Intact interatrial septum 2. Severe biatrial enlargement 3. Mildly impaired LV function with EF between 40-45% 4. Thickened mitral valve leaflets with moderate mitral regurgitation 5. Moderate tricuspid regurgitation 6. Mild aortic insufficiency
--- NOTE | 2022-03-07 12:28 | P.PCN ---
Date of Procedure: 03/07/22 Operative Findings: Cardioversion Report Performing physician Satnam Page M.D. Procedure performed Successful cardioversion of atrial fibrillation to normal sinus mechanism using 200 J at first attempt Indication Symptomatic atrial fibrillation Complication None Level of sedation The procedure was performed under deep sedation using propofol with INSURANCE DEFENSE PARALEGAL in the room Procedure description After obtaining an informed consent the patient was brought to the recovery room. Sedation was introduced using propofol with INSURANCE DEFENSE PARALEGAL in the room. Transesophageal echocardiogram was performed and intracardiac thrombus was ruled out Subsequently the patient cardioverted from atrial fibrillation to normal sinus mechanism using 200 J and first attempt Conclusion Successful cardioversion of atrial fibrillation to normal sinus mechanism using 200 J Postprocedure management Continue the current medical regimen Continue oral anticoagulation Follow-up with the patient
[2022-03-07 16:05] VITALS: BP 160/78; PULSE 66
== END ==
LOC: CATHCVL 10:43
PROVIDERS: ATTEND Internal Medicine Interventional Cardiology
DX: I08.1 Rheumatic disorders of both mitral and tricuspid valves (principal); I48.91 Unspecified atrial fibrillation; I10 Essential (primary) hypertension; E78.5 Hyperlipidemia, unspecified; F17.210 Nicotine dependence, cigarettes, uncomplicated
CPT/HCPCS: 93312; 93320; 93325; 92960; J2704; J2001

== ENCOUNTER 2022-06-17 15:56 | Emergency (ER) | payer MEDICARE, BC ==
[2022-06-17] MEDS ORDERED: SODIUM CHLORIDE 0.9% 500 ML 500 ML IV STA (17:28)
[2022-06-17] MEDS ORDERED: SODIUM CHLORIDE 0.9% 1,000 ML IV STA (17:28)
[2022-06-17] MEDS ORDERED: ACETAMINOPHEN TAB 325 MG TAB PO STA (17:28)
--- NOTE | 2022-06-17 17:33 | ED ---
General Adult HPI - General Chief complaint: Dizziness Stated complaint: weakness,altered mental Time Seen by Provider: 06/17/22 17:05 Source: patient Mode of arrival: wheelchair Limitations: no limitations - History of Present Illness Initial comments: This patient is an 82-year-old woman who is here to have evaluation after she was somewhat unsteady with walking at home today and her appetite was decreased. His history is given by the patient's partner who is here with her. When I interview the patient, she states that she is feeling well. She denies chest pain, back pain, abdominal pain. No dyspnea or cough. No problems with urination or bowel movements. Fever is reportedly found in triage area the patient is not aware that she has had a fever and she has not experienced chills. -: hour(s) Severity scale (1-10): 0 Improves with: none Worsens with: none Associated Symptoms: other Treatments Prior to Arrival: none - Related Data Home Medications Medication Instructions Recorded Confirmed Atorvastatin [Lipitor] 20 mg PO HS 02/08/21 06/17/22 Benazepril [Lotensin] 10 mg PO HS 02/08/21 06/17/22 Cholecalciferol [Vitamin D3 (25 50 mcg PO DAILY 02/08/21 06/17/22 Mcg = 1000 Iu)] Memantine HCl 10 mg PO BID 03/06/22 06/17/22 Donepezil 23mg 23 mg PO HS 06/17/22 06/17/22 Previous Rx's Medication Instructions Recorded Apixaban [Eliquis] 2.5 mg PO BID #60 tab 02/09/21 Metoprolol Succinate (ER) [Toprol 50 mg PO DAILY #30 tablet 02/09/21 XL] Allergies Allergy/AdvReac Type Severity Reaction Status Date / Time No Known Allergies Allergy Verified 06/17/22 17:35 Review of Systems ROS Statement: Those systems with pertinent positive or pertinent negative responses have been documented in the HPI. ROS Other: All systems not noted in ROS Statement are negative. Constitutional: Denies: fever, chills Respiratory: Denies: cough, dyspnea Cardiovascular: Denies: chest pain, syncope Gastrointestinal: Denies: abdominal pain, vomiting, diarrhea Genitourinary: Denies: dysuria Musculoskeletal: Denies: back pain Skin: Denies: rash Neurological: Denies: headache, weakness Past Medical History Past Medical History: Atrial Fibrillation, Dementia, Hyperlipidemia, Hypertension, Syncope, Vascular Disorder Additional Past Medical History / Comment(s): episode of passing out briefly last year, unsure of cause History of Any Multi-Drug Resistant Organisms: None Reported Past Surgical History: Hysterectomy Additional Past Surgical History / Comment(s): R carotid endartectomy, colonoscopy Past Anesthesia/Blood Transfusion Reactions: No Reported Reaction Past Psychological History: No Psychological Hx Reported Smoking Status: Former smoker Past Alcohol Use History: None Reported Past Drug Use History: None Reported - Past Family History Father Additional Family Medical History / Comment(s): Heart problems/blood clot, at the age of 84 yrs. Mother Family Medical History: No Reported History Additional Family Medical History / Comment(s): Mother lived to be 93 yrs old. Family Family Medical History: No Reported History General Exam Limitations: no limitations General appearance: alert, in no apparent distress Head exam: Present: atraumatic, normocephalic Eye exam: Present: normal appearance Neck exam: Present: normal inspection, full ROM. Absent: meningismus Respiratory exam: Present: normal lung sounds bilaterally. Absent: respiratory distress, wheezes, rales, rhonchi, stridor Cardiovascular Exam: Present: tachycardia (Rate approximately 132 at my exam), irregular rhythm, normal heart sounds. Absent: systolic murmur, diastolic murmur, rubs, gallop GI/Abdominal exam: Present: soft. Absent: distended, tenderness, guarding, rebound, rigid, mass Extremities exam: Present: normal inspection, normal capillary refill. Absent: pedal edema, calf tenderness Back exam: Present: normal inspection. Absent: CVA tenderness (R), CVA tenderness (L) Neurological exam: Present: alert, CN II-XII intact. Absent: oriented X3 (Patient is disoriented to date.), motor sensory deficit Skin exam: Present: warm, dry, intact, normal color. Absent: rash Course Vital Signs 06/17/22 06/17/22 06/17/22 16:37 17:14 18:58 Temperature 101.8 F H 98.9 F Pulse Rate 145 H 146 H 131 H Respiratory 18 24 18 Rate Blood Pressure 142/82 156/92 O2 Sat by Pulse 95 94 L Oximetry 06/17/22 06/17/22 06/17/22 19:30 20:00 20:26 Temperature 98.2 F Pulse Rate 133 H 122 H Respiratory 16 18 Rate Blood Pressure 132/103 125/89 O2 Sat by Pulse 95 97 Oximetry 06/17/22 20:38 Temperature Pulse Rate 110 H Respiratory 16 Rate Blood Pressure O2 Sat by Pulse 97 Oximetry EKG Findings - EKG Results: EKG: interpreted by WOOD, normal axis EKG shows: atrial fibrillation (Rate 132 bpm) Medical Decision Making - Medical Decision Making This patient is an 82-year-old woman here to have evaluation for fever. As part of the evaluation she did have chest x-ray which I interpreted as showing no pneumothorax, there does appear to be some basilar atelectasis but no definite pneumonia. The patient's studies do reveal COVID-19 infection. Results are discussed with patient and family and she would like to go home. We did discuss appropriate further care and follow-up as well as return parameters. Was pt. sent in by a medical professional or institution (, PA, [facility], urgent care, hospital, or [place] [facility] facility...) When possible be specific @ -[No] Did you speak to anyone other than the patient for history (EMS, parent, family, police, friend...)? What history was obtained from this source @ -[No] Did you review nursing and triage notes (agree or disagree)? Why? @ -[I reviewed the triage notes and agree Were old charts reviewed (outside hosp., previous admission, EMS record, old EKG, old radiological studies, urgent care reports/EKG's, [place] [facility] facility records)? Report findings @ -[No old charts were reviewed] Differential Diagnosis (chest pain, altered mental status, abdominal pain women, abdominal pain men, vaginal bleeding, weakness, fever, dyspnea, syncope, headache, dizziness, GI bleed, back pain, seizure, CVA, palpatations, mental health, musculoskeletal)? @ -[Differential Fever: Pneumonia, viral URI, endocarditis, myocarditis, pericarditis, otitis, sinusitis, peritonsillar Abscess, retropharyngeal Abscess, epiglottitis, peritonitis, appendicitis, Yusra cystitis, diverticulitis, hepatitis, colitis, UTI, PID, TOA, pyelonephritis, prostatitis, epididymitis, meningitis, encephalitis, pulmonary embolism, CVA, thyroid storm, pancreatitis, adrenal crisis, cavernous sinus thrombosis, this is not meant to be an all-inclusive list. EKG interpreted by me (3pts min.). @ -[As above] X-rays interpreted by me (1pt min.). @ -[As above CT interpreted by me (1pt min.). @ -[None done] U/S interpreted by me (1pt. min.). @ -[None done] What testing was considered but not performed or refused? (CT, X-rays, U/S, labs)? Why? @ -[None] What meds were considered but not given or refused? Why? @ -[None] Did you discuss the management of the patient with other professionals (professionals i.e. DrAmbika, PA, APNS, lab, RT, psych nurse, social insurance adviser, shear scrapman, teacher, court collections officer, correctional casework specialist)? Give summary @ -[No] Was smoking cessation discussed for >3mins.? @ -[No] Was critical care preformed (if so, how long)? @ -[No] Were there social determinants of health that impacted care today? How? (Homelessness, low income, unemployed, alcoholism, drug addiction, transportation, low edu. Level, literacy, decrease access to med. care, longterm, rehab)? @ -[No] Was there de-escalation of care discussed even if they declined (Discuss DNR or withdrawal of care, Hospice)? DNR status @ -[No] What co-morbidities impacted this encounter? (DM, HTN, Smoking, COPD, CAD, Cancer, CVA, ARF, Chemo, Hep., AIDS, mental health diagnosis, sleep apnea, morbid obesity)? @ -[None] Was patient admitted / discharged? Hospital course, mention meds given and route, prescriptions, significant lab abnormalities, going to OR and other pertinent info. @ -[Patient is feeling better and would like to go home, she is discharged with with instructions for close follow-up, return parameters discussed Undiagnosed new problem with uncertain prognosis? @ -[No] Drug Therapy requiring intensive monitoring for toxicity (Heparin, Nitro, Insulin, Cardizem)? @ -[No] Were any procedures done? @ -[No] Diagnosis/symptom? @ -[Acute COVID-19 infection Acute, or Chronic, or Acute on Chronic? @ -[default] Uncomplicated (without systemic symptoms) or Complicated (systemic symptoms)? @ -[Complicated Side effects of treatment? @ -[No] Exacerbation, Progression, or Severe Exacerbation? @ -[No] Poses a threat to life or bodily function? How? (Chest pain, [place], [place], pneumonia, PE, COPD, DKA, ARF, appy, cholecystitis, CVA, Diverticulitis, Homicidal, Suicidal, threat to staff... and all critical care pts) @ -[This COVID-19 may progress to cause a number of complications including respiratory failure and thromboembolic phenomenon appropriate further care and follow-up discussed - Lab Data Result diagrams: 06/17/22 17:45 06/17/22 17:45 Lab Results 06/17/22 06/17/22 06/17/22 Range/Units 17:45 17:45 17:45 WBC 9.8 (3.8-10.6) k/uL RBC 4.62 (3.80-5.40) m/uL Hgb 13.3 (11.4-16.0) gm/dL Hct 41.6 (34.0-46.0) % MCV 90.1 (80.0-100.0) fL MCH 28.8 (25.0-35.0) pg MCHC 32.0 (31.0-37.0) g/dL RDW 14.2 (11.5-15.5) % Plt Count 205 (150-450) k/uL MPV 7.4 Neutrophils % 87 % Lymphocytes % 8 % Monocytes % 3 % Eosinophils % 1 % Basophils % 0 % Neutrophils # 8.5 H (1.3-7.7) k/uL Lymphocytes # 0.8 L (1.0-4.8) k/uL Monocytes # 0.3 (0-1.0) k/uL Eosinophils # 0.1 (0-0.7) k/uL Basophils # 0.0 (0-0.2) k/uL Sodium 135 L (137-145) mmol/L Potassium 4.4 (3.5-5.1) mmol/L Chloride 105 (98-107) mmol/L Carbon Dioxide 24 (22-30) mmol/L Anion Gap 6 mmol/L BUN 15 (7-17) mg/dL Creatinine 0.55 (0.52-1.04) mg/dL Est GFR (CKD-EPI)AfAm >90 (>60 ml/min/1.73 sqM) Est GFR (CKD-EPI)NonAf 87 (>60 ml/min/1.73 sqM) Glucose 111 H (74-99) mg/dL Plasma Lactic Acid Dave (0.7-2.0) mmol/L Calcium 8.8 (8.4-10.2) mg/dL Total Bilirubin 1.0 (0.2-1.3) mg/dL AST 28 (14-36) U/L ALT 23 (4-34) U/L Alkaline Phosphatase 106 (38-126) U/L Total Protein 6.6 (6.3-8.2) g/dL Albumin 4.0 (3.5-5.0) g/dL Urine Color Yellow Urine Appearance Clear (Clear) Urine pH 7.0 (5.0-8.0) Ur Specific [place] 1.020 (1.001-1.035) Urine Protein Trace H (Negative) Urine Glucose (UA) Negative (Negative) Urine Ketones 1+ H (Negative) Urine Blood Negative (Negative) Urine Nitrite Negative (Negative) Urine Bilirubin Negative (Negative) Urine Urobilinogen <2.0 (<2.0) mg/dL Ur Leukocyte Esterase Negative (Negative) Influenza Type A (PCR) (Not Detectd) Influenza Type B (PCR) (Not Detectd) RSV (PCR) (Not Detectd) SARS-CoV-2 (PCR) (Not Detectd) 06/17/22 06/17/22 Range/Units 17:45 17:45 WBC (3.8-10.6) k/uL RBC (3.80-5.40) m/uL Hgb (11.4-16.0) gm/dL Hct (34.0-46.0) % MCV (80.0-100.0) fL MCH (25.0-35.0) pg MCHC (31.0-37.0) g/dL RDW (11.5-15.5) % Plt Count (150-450) k/uL MPV Neutrophils % % Lymphocytes % % Monocytes % % Eosinophils % % Basophils % % Neutrophils # (1.3-7.7) k/uL Lymphocytes # (1.0-4.8) k/uL Monocytes # (0-1.0) k/uL Eosinophils # (0-0.7) k/uL Basophils # (0-0.2) k/uL Sodium (137-145) mmol/L Potassium (3.5-5.1) mmol/L Chloride (98-107) mmol/L Carbon Dioxide (22-30) mmol/L Anion Gap mmol/L BUN (7-17) mg/dL Creatinine (0.52-1.04) mg/dL Est GFR (CKD-EPI)AfAm (>60 ml/min/1.73 sqM) Est GFR (CKD-EPI)NonAf (>60 ml/min/1.73 sqM) Glucose (74-99) mg/dL Plasma Lactic Acid Dave 1.3 (0.7-2.0) mmol/L Calcium (8.4-10.2) mg/dL Total Bilirubin (0.2-1.3) mg/dL AST (14-36) U/L ALT (4-34) U/L Alkaline Phosphatase (38-126) U/L Total Protein (6.3-8.2) g/dL Albumin (3.5-5.0) g/dL Urine Color Urine Appearance (Clear) Urine pH (5.0-8.0) Ur Specific [place] (1.001-1.035) Urine Protein (Negative) Urine Glucose (UA) (Negative) Urine Ketones (Negative) Urine Blood (Negative) Urine Nitrite (Negative) Urine Bilirubin (Negative) Urine Urobilinogen (<2.0) mg/dL Ur Leukocyte Esterase (Negative) Influenza Type A (PCR) Not Detected (Not Detectd) Influenza Type B (PCR) Not Detected (Not Detectd) RSV (PCR) Not Detected (Not Detectd) SARS-CoV-2 (PCR) Detected A (Not Detectd) Disposition Clinical Impression: COVID-19, Atrial fibrillation with RVR Disposition: HOME SELF-CARE Condition: Fair Instructions (If sedation given, give patient instructions): COVID-19 (Coronavirus Disease 2019) (ED) Is patient prescribed a controlled substance at d/c from ED?: No Referrals: Rakan Estrella DO [Primary Care Provider] - 1-2 days
[2022-06-17] MEDS ORDERED: NITROGLYCERIN OINT 1 INCH/GM PACKET TOPICAL STA (17:56)
[2022-06-17 18:22] LABS: Appearance,Urine Clear (Clear); Bilirubin,Urine Negative (Negative); Blood,Urine Negative (Negative); Color,Urine Yellow; Glucose,Urine (UA) Negative (Negative); Ketones,Urine 1+ (Negative); Leukocyte Esterase,Urine Negative (Negative); Nitrite,Urine Negative (Negative); Protein,Urine Trace (Negative); Urobilinogen,Urine <2.0 mg/dL (<2.0)
[2022-06-17 18:33] LABS: Basophils % (A) 0 %; Eosinophils # (A) 0.1 k/uL (0-0.7); Eosinophils % (A) 1 %; HCT 41.6 % (34.0-46.0); HGB 13.3 gm/dL (11.4-16.0); Lymphocytes # (A) 0.8 k/uL (1.0-4.8); Lymphocytes % (A) 8 %; MCH 28.8 pg (25.0-35.0); MCV 90.1 fL (80.0-100.0); Mean Platelet Volume 7.4; Monocytes # (A) 0.3 k/uL (0-1.0); Monocytes % (A) 3 %; Neutrophils # (A) 8.5 k/uL (1.3-7.7); Neutrophils % (A) 87 %; Platelet Count 205 k/uL (150-450); RBC 4.62 m/uL (3.80-5.40); RDW 14.2 % (11.5-15.5); WBC 9.8 k/uL (3.8-10.6)
[2022-06-17 18:55] LABS: ALT 23 U/L (4-34); AST 28 U/L (14-36); African American GFR (CKD) >90 (>60 ml/min/1.73 sqM); Alkaline Phosphatase 106 U/L (38-126); Anion Gap 6 mmol/L; Blood Urea Nitrogen 15 mg/dL (7-17); Calcium 8.8 mg/dL (8.4-10.2); Carbon Dioxide 24 mmol/L (22-30); Chloride 105 mmol/L (98-107); Glucose 111 mg/dL (74-99); Non-African American GFR(CKD) 87 (>60 ml/min/1.73 sqM); Potassium 4.4 mmol/L (3.5-5.1); Sodium 135 mmol/L (137-145); Total Protein 6.6 g/dL (6.3-8.2)
--- NOTE | 2022-06-17 19:27 | XR ---
EXAMINATION TYPE: XR chest 1V portable DATE OF EXAM: 06/17/2022 COMPARISON: To 322 INDICATION: Fever acute mental status change weakness TECHNIQUE: Single frontal view of the chest is obtained. FINDINGS: The heart size is mildly prominent. The pulmonary vasculature is upper limits for normal. Some mild infiltrate is along the left diaphragm. Correlate for atelectasis or pneumonia. IMPRESSION: 1. Mild cardiomegaly with borderline prominence of the pulmonary vascular markings. Correlate for vol ume overload. 2. Left basilar infiltrate. Correlate for atelectasis or pneumonia. Follow-up is recommended.
[2022-06-17] MEDS: METOPROLOL TARTRATE 5 MG/5 ML VIAL IVP SCH ×4 (19:47→20:38)
[2022-06-17 20:27] VITALS: TEMP 98.2
[2022-06-17 20:28] VITALS: BP 125/89
[2022-06-17 20:39] VITALS: PULSE 110; RESP 16
== END 2022-06-17 20:47 | disposition home or self-care (01) ==
LOC: EC 15:56
DX: U07.1 COVID-19 (principal); I48.91 Unspecified atrial fibrillation; I10 Essential (primary) hypertension; E78.5 Hyperlipidemia, unspecified; Z79.01 Long term (current) use of anticoagulants; Z79.899 Other long term (current) drug therapy; Z87.891 Personal history of nicotine dependence
CPT/HCPCS: 36415; 93005; 80053; 83605; 85025; 81003; 87040; 87636; 71045; 99284; 96365; 96375; 96361 ×2; J0696

== ENCOUNTER 2023-03-01 09:01 | Inpatient (IN) | payer MEDICARE, BC ==
--- NOTE | 2023-03-01 09:13 | ED ---
General Adult HPI - General Stated complaint: fall Time Seen by Provider: 03/01/23 09:03 Source: EMS, RN notes reviewed, old records reviewed Limitations: altered mental status - History of Present Illness Initial comments: 82-year-old female presents by EMS after being found outside. Patient has history of dementia and had apparently gone outside and sustained a fall. There was head trauma noted including hematoma on the forehead and paramedics report laceration to the back of the head. Patient was C-collared and transported urgently to the emergency department. She has history of dementia and baseline mental status is not known. Patient is unable to answer any questions. She has normal respiratory pattern and relatively stable vitals during transport with the exception of unknown temperature. - Related Data Home Medications Medication Instructions Recorded Confirmed Atorvastatin [Lipitor] 20 mg PO HS 02/08/21 06/17/22 Benazepril [Lotensin] 10 mg PO HS 02/08/21 06/17/22 Cholecalciferol [Vitamin D3 (25 50 mcg PO DAILY 02/08/21 06/17/22 Mcg = 1000 Iu)] Memantine HCl 10 mg PO BID 03/06/22 06/17/22 Donepezil 23mg 23 mg PO HS 06/17/22 06/17/22 Previous Rx's Medication Instructions Recorded Apixaban [Eliquis] 2.5 mg PO BID #60 tab 02/09/21 Metoprolol Succinate (ER) [Toprol 50 mg PO DAILY #30 tablet 02/09/21 XL] Allergies Allergy/AdvReac Type Severity Reaction Status Date / Time No Known Allergies Allergy Verified 06/17/22 17:35 Review of Systems ROS Statement: Those systems with pertinent positive or pertinent negative responses have been documented in the HPI. ROS Other: All systems not noted in ROS Statement are negative. Past Medical History Past Medical History: Atrial Fibrillation, Dementia, Hyperlipidemia, Hypertension, Syncope, Vascular Disorder Additional Past Medical History / Comment(s): episode of passing out briefly last year, unsure of cause History of Any Multi-Drug Resistant Organisms: None Reported Past Surgical History: Hysterectomy Additional Past Surgical History / Comment(s): R carotid endartectomy, colonoscopy Past Anesthesia/Blood Transfusion Reactions: No Reported Reaction Past Psychological History: No Psychological Hx Reported Smoking Status: Former smoker Past Alcohol Use History: None Reported Past Drug Use History: None Reported - Past Family History Father Additional Family Medical History / Comment(s): Heart problems/blood clot, at the age of 84 yrs. Mother Family Medical History: No Reported History Additional Family Medical History / Comment(s): Mother lived to be 93 yrs old. Family Family Medical History: No Reported History General Exam General appearance: alert, in distress Head exam: Present: other (Frontal hematoma, 0.5 cm laceration on the left parietal scalp, no active bleeding) Eye exam: Present: PERRL Neck exam: Present: other (C-collar) Respiratory exam: Present: respiratory distress (Neck). Absent: wheezes, rales, rhonchi Cardiovascular Exam: Present: tachycardia, irregular rhythm GI/Abdominal exam: Present: soft. Absent: distended, tenderness, guarding Neurological exam: Absent: alert, oriented X3 Skin exam: Present: cyanosis. Absent: warm Course Vital Signs 03/01/23 09:06 Pulse Rate 98 Respiratory 20 Rate Blood Pressure 141/108 O2 Sat by Pulse 99 Oximetry Medical Decision Making - Medical Decision Making Was pt. sent in by a medical professional or institution (Dr. PA, [employer]OL DRILLER, urgent care, hospital, or assisted...) When possible be specific @ -No Did you speak to anyone other than the patient for history (EMS, parent, family, police, friend...)? What history was obtained from this source @ -No Did you review nursing and triage notes (agree or disagree)? Why? @ -I reviewed and agree with nursing and triage notes Were old charts reviewed (outside hosp., previous admission, EMS record, old EKG, old radiological studies, urgent care reports/EKG's, assisted records)? Report findings @ -No old charts were reviewed Differential Diagnosis (chest pain, altered mental status, abdominal pain women, abdominal pain men, vaginal bleeding, weakness, fever, dyspnea, syncope, headache, dizziness, GI bleed, back pain, seizure, CVA, palpatations, mental health, musculoskeletal)? @ -Hypothermia, rhabdomyolysis, traumatic injury from fall EKG interpreted by me (3pts min.). @ -Atrial fibrillation rate of 101, QRS duration 94, QTC 469, tremor artifact limiting assessment. X-rays interpreted by me (1pt min.). @ X-rays of the chest and pelvis are negative for traumatic injury CT interpreted by me (1pt min.). @ CT brain and cervical spine negative for traumatic injury U/S interpreted by me (1pt. min.). @ -None done What testing was considered but not performed or refused? (CT, X-rays, U/S, labs)? Why? @ -None What meds were considered but not given or refused? Why? @ -None Did you discuss the management of the patient with other professionals (professionals i.e. , PA, [employer] TOOL DRILLER, lab, RT, psych nurse, dialysis social worker, radioactivity technician, teacher, multisensor intelligence officer, test case developer)? Give summary @ -Dr. kennedy Was smoking cessation discussed for >3mins.? @ -No Was critical care preformed (if so, how long)? @ yes 35 min Were there social determinants of health that impacted care today? How? (Homelessness, low income, unemployed, alcoholism, drug addiction, transportation, low edu. Level, literacy, decrease access to med. care, [facility]ci, rehab)? @ -No Was there de-escalation of care discussed even if they declined (Discuss DNR or withdrawal of care, Hospice)? DNR status @ -No What co-morbidities impacted this encounter? (DM, HTN, Smoking, COPD, CAD, Cancer, CVA, ARF, Chemo, Hep., AIDS, mental health diagnosis, sleep apnea, morbid obesity)? @ -Dementia Was patient admitted / discharged? Hospital course, mention meds given and route, prescriptions, significant lab abnormalities, going to OR and other pertinent info. @ -[82 -year-old female with fall, who was outside, was peripherally cyanotic, cold upon arrival. Patient was unable to respond initially but throughout her stay in the emergency department she returned to baseline with baseline mental status. No complaints. She had abrasions throughout without additional traumatic injury identified. Normal CBC, CMP suggestive of someone who been out in the cold with lactic acidosis likely secondary to peripheral vasoconstriction and poor perfusion. She's given warm IV fluids, placed on the bear hugger. She'll be admitted for monitoring and reevaluation to Dr. Kennedy who is aware. Undiagnosed new problem with uncertain prognosis? @ -No Drug Therapy requiring intensive monitoring for toxicity (Heparin, Nitro, Insulin, Cardizem)? @ -No Were any procedures done? @ -No Diagnosis/symptom? @ -Fall, weakness, dehydration Acute, or Chronic, or Acute on Chronic? @ acute Uncomplicated (without systemic symptoms) or Complicated (systemic symptoms)? @ -default Side effects of treatment? @ -No Exacerbation, Progression, or Severe Exacerbation? @ -No Poses a threat to life or bodily function? How? (Chest pain, [place], [place], pneumonia, PE, COPD, DKA, ARF, appy, cholecystitis, CVA, Diverticulitis, Homicidal, Suicidal, threat to staff... and all critical care pts) @ Moderate risk - Lab Data Result diagrams: 03/01/23 09:25 03/01/23 09:25 Lab Results 03/01/23 03/01/23 03/01/23 Range/Units 09:25 09:25 09:25 WBC 9.9 (3.8-10.6) k/uL RBC 5.20 (3.80-5.40) m/uL Hgb 14.6 (11.4-16.0) gm/dL Hct 47.8 H (34.0-46.0) % MCV 92.0 (80.0-100.0) fL MCH 28.1 (25.0-35.0) pg MCHC 30.6 L (31.0-37.0) g/dL RDW 15.6 H (11.5-15.5) % Plt Count 231 (150-450) k/uL MPV 8.6 Neutrophils % 66 % Lymphocytes % 29 % Monocytes % 3 % Eosinophils % 1 % Basophils % 0 % Neutrophils # 6.6 (1.3-7.7) k/uL Lymphocytes # 2.8 (1.0-4.8) k/uL Monocytes # 0.2 (0-1.0) k/uL Eosinophils # 0.1 (0-0.7) k/uL Basophils # 0.0 (0-0.2) k/uL Hypochromasia Marked PT 12.6 H (10.0-12.5) sec INR 1.2 H (<1.2) APTT 23.1 (22.0-30.0) sec Sodium 141 (137-145) mmol/L Potassium 5.3 H (3.5-5.1) mmol/L Chloride 105 (98-107) mmol/L Carbon Dioxide 17 L (22-30) mmol/L Anion Gap 19 mmol/L BUN 18 H (7-17) mg/dL Creatinine 0.70 (0.52-1.04) mg/dL Est GFR (CKD-EPI)AfAm >90 (>60 ml/min/1.73 sqM) Est GFR (CKD-EPI)NonAf 80 (>60 ml/min/1.73 sqM) Glucose 216 H (74-99) mg/dL Lactic Ac Sepsis Rflx Plasma Lactic Acid Dave (0.7-2.0) mmol/L Calcium 9.4 (8.4-10.2) mg/dL Magnesium 2.0 (1.6-2.3) mg/dL Total Bilirubin 1.0 (0.2-1.3) mg/dL AST 60 H (14-36) U/L ALT 33 (4-34) U/L Alkaline Phosphatase 108 (38-126) U/L Creatine Kinase 287 H (30-135) U/L Troponin I (0.000-0.034) ng/mL Total Protein 7.7 (6.3-8.2) g/dL Albumin 4.6 (3.5-5.0) g/dL 03/01/23 03/01/23 03/01/23 Range/Units 09:25 09:25 10:25 WBC (3.8-10.6) k/uL RBC (3.80-5.40) m/uL Hgb (11.4-16.0) gm/dL Hct (34.0-46.0) % MCV (80.0-100.0) fL MCH (25.0-35.0) pg MCHC (31.0-37.0) g/dL RDW (11.5-15.5) % Plt Count (150-450) k/uL MPV Neutrophils % % Lymphocytes % % Monocytes % % Eosinophils % % Basophils % % Neutrophils # (1.3-7.7) k/uL Lymphocytes # (1.0-4.8) k/uL Monocytes # (0-1.0) k/uL Eosinophils # (0-0.7) k/uL Basophils # (0-0.2) k/uL Hypochromasia PT (10.0-12.5) sec INR (<1.2) APTT (22.0-30.0) sec Sodium (137-145) mmol/L Potassium (3.5-5.1) mmol/L Chloride (98-107) mmol/L Carbon Dioxide (22-30) mmol/L Anion Gap mmol/L BUN (7-17) mg/dL Creatinine (0.52-1.04) mg/dL Est GFR (CKD-EPI)AfAm (>60 ml/min/1.73 sqM) Est GFR (CKD-EPI)NonAf (>60 ml/min/1.73 sqM) Glucose (74-99) mg/dL Lactic Ac Sepsis Rflx Y Plasma Lactic Acid Dave 8.2 H* (0.7-2.0) mmol/L Calcium (8.4-10.2) mg/dL Magnesium (1.6-2.3) mg/dL Total Bilirubin (0.2-1.3) mg/dL AST (14-36) U/L ALT (4-34) U/L Alkaline Phosphatase (38-126) U/L Creatine Kinase (30-135) U/L Troponin I 0.017 (0.000-0.034) ng/mL Total Protein (6.3-8.2) g/dL Albumin (3.5-5.0) g/dL 03/01/23 Range/Units 13:00 WBC (3.8-10.6) k/uL RBC (3.80-5.40) m/uL Hgb (11.4-16.0) gm/dL Hct (34.0-46.0) % MCV (80.0-100.0) fL MCH (25.0-35.0) pg MCHC (31.0-37.0) g/dL RDW (11.5-15.5) % Plt Count (150-450) k/uL MPV Neutrophils % % Lymphocytes % % Monocytes % % Eosinophils % % Basophils % % Neutrophils # (1.3-7.7) k/uL Lymphocytes # (1.0-4.8) k/uL Monocytes # (0-1.0) k/uL Eosinophils # (0-0.7) k/uL Basophils # (0-0.2) k/uL Hypochromasia PT (10.0-12.5) sec INR (<1.2) APTT (22.0-30.0) sec Sodium (137-145) mmol/L Potassium (3.5-5.1) mmol/L Chloride (98-107) mmol/L Carbon Dioxide (22-30) mmol/L Anion Gap mmol/L BUN (7-17) mg/dL Creatinine (0.52-1.04) mg/dL Est GFR (CKD-EPI)AfAm (>60 ml/min/1.73 sqM) Est GFR (CKD-EPI)NonAf (>60 ml/min/1.73 sqM) Glucose (74-99) mg/dL Lactic Ac Sepsis Rflx Plasma Lactic Acid Daev 5.3 H* (0.7-2.0) mmol/L Calcium (8.4-10.2) mg/dL Magnesium (1.6-2.3) mg/dL Total Bilirubin (0.2-1.3) mg/dL AST (14-36) U/L ALT (4-34) U/L Alkaline Phosphatase (38-126) U/L Creatine Kinase (30-135) U/L Troponin I (0.000-0.034) ng/mL Total Protein (6.3-8.2) g/dL Albumin (3.5-5.0) g/dL Critical Care Time Critical Care Time: Yes Total Critical Care Time: 35 Disposition Clinical Impression: Fall, Dementia, Hypothermia, Dehydration Disposition: ADMITTED IP TO THIS [facility] Condition: Stable Is patient prescribed a controlled substance at d/c from ED?: No Referrals: Rakan Estrella DO [Primary Care Provider] - 1-2 days Time of Disposition: 14:12
[2023-03-01 09:43] LABS: Basophils % (A) 0 %; Eosinophils # (A) 0.1 k/uL (0-0.7); Eosinophils % (A) 1 %; HCT 47.8 % (34.0-46.0); HGB 14.6 gm/dL (11.4-16.0); Hypochromasia Marked; Lymphocytes # (A) 2.8 k/uL (1.0-4.8); Lymphocytes % (A) 29 %; MCH 28.1 pg (25.0-35.0); MCHC 30.6 g/dL (31.0-37.0); Mean Platelet Volume 8.6; Monocytes # (A) 0.2 k/uL (0-1.0); Monocytes % (A) 3 %; Neutrophils # (A) 6.6 k/uL (1.3-7.7); Neutrophils % (A) 66 %; Platelet Count 231 k/uL (150-450); RDW 15.6 % (11.5-15.5); WBC 9.9 k/uL (3.8-10.6)
[2023-03-01 09:58] LABS: ALT 33 U/L (4-34); African American GFR (CKD) >90 (>60 ml/min/1.73 sqM); Anion Gap 19 mmol/L; Blood Urea Nitrogen 18 mg/dL (7-17); Calcium 9.4 mg/dL (8.4-10.2); Carbon Dioxide 17 mmol/L (22-30); Chloride 105 mmol/L (98-107); Non-African American GFR(CKD) 80 (>60 ml/min/1.73 sqM); Sodium 141 mmol/L (137-145)
--- NOTE | 2023-03-01 10:17 | CT ---
EXAMINATION TYPE: CT brain cspine wo con CT DLP: 1246.1 mGycm, Automated exposure control for dose reduction was used. DATE OF EXAM: 03/01/2023 9:44 AM COMPARISON: None. CLINICAL INDICATION:Female, 82 years old with history of trauma; TRAUMA, FALL TECHNIQUE: Brain: Multiple axial CT images of the brain were obtained without IV contrast. Cspine: Axial CT images from the skull base to the inferior aspect of T2 we obtained without intraven ous contrast. Coronal and sagittal reformatted images were also reviewed. FINDINGS: Brain: Extra-axial spaces: No abnormal extra-axial fluid collections. Ventricular system: Appear dilated in proportion to the degree of cerebral atrophy. Cerebral parenchyma: No increased attenuation to suggest acute intraparenchymal hemorrhage. The gra y-white matter interface appears maintained. Moderate generalized brain atrophy. Scattered hypoatte nuating areas are seen within the cerebral white matter, nonspecific but most often seen with chronic microvascular ischemic changes; overall moderate/severe in degree but appears worst in the right par ietal region. Cerebellum: No acute abnormality. Mass effect: No evidence of mass effect or midline shift. Intracranial vasculature: Atherosclerotic calcifications of the larger arteries near the skull base. Soft tissues: Small soft tissue hematoma suggested over the left forehead. Visualized orbits: Orbital contents appear grossly intact. Radiodensities along the globes likely s equela of previous ophthalmologic surgery. Calvarium/osseous structures: No evidence of calvarial fracture. Paranasal sinuses and mastoid air cells: Mild paranasal sinus mucosal thickening. Mastoid air cells a re clear. MRI is more sensitive for detecting acute processes such as infarct, and may be considered if clinica lly warranted. Cervical spine: Fracture: None seen. Osseous structures, spinal canal/neural foramina: Craniocervical junction is intact. Mild degenerativ e change of the C1-C2 articulation. Mild retrodental soft tissue density with tiny calcifications con siderations include rheumatoid pannus. Generally mild degenerative disc changes and facet arthrosis w ith mild central canal and neural foraminal stenoses at C5-C6. Generally mild facet disease, with lynnette r complete fusion of the facets on the right at C2-C3 and moderate facet arthropathy on the right at C3-C4. Vertebral alignment: No traumatic malalignment. No significant listhesis. Preserved normal cervical l ordosis. Neck soft tissues: No acute finding.. Calcifications noted involving the cervical carotid arteries mo stly bifurcation regions. Other: Lung apices show mild biapical pleural-parenchymal scarring. Mild emphysematous changes. Small patchy groundglass infiltrates in the right upper lobe. Upper thoracic esophagus appears mildly pat ulous with some heterogeneous fluid layering posteriorly IMPRESSION: CT head: 1. No acute intracranial CT abnormality. 2. Atrophy and chronic microvascular ischemic changes. CT cervical spine: 1. No evidence of cervical spine fracture or traumatic malalignment. 2. Mild/moderate cervical spondylosis. 3. Groundglass infiltrates in the right upper lobe, may reflect infectious/inflammatory process. 4. Mildly patulous upper thoracic esophagus; achalasia or other distal esophageal process is consider ed.
[2023-03-01 10:27] LABS: Glucose 216 mg/dL (74-99); Potassium 5.3 mmol/L (3.5-5.1); Total Protein 7.7 g/dL (6.3-8.2)
--- NOTE | 2023-03-01 10:27 | XR ---
EXAMINATION TYPE: XR pelvis AP view DATE OF EXAM: 03/01/2023 9:50 AM CLINICAL INDICATION:Female, 82 years old with history of fall; H COMPARISON: None TECHNIQUE: The pelvis was examined in a single projection. FINDINGS: There is no evidence of fracture or dislocation. There is no soft tissue abnormality. No a bnormal calcifications are present. The spine appears intact. The hips appear intact. Osteophyte form ation of the superior acetabulum bilaterally with mild joint space narrowing. IMPRESSION: No acute osseous pathology. Mild to moderate degeneration changes of the hips.
[2023-03-01 10:28] LABS: AST 60 U/L (14-36); Albumin 4.6 g/dL (3.5-5.0); Alkaline Phosphatase 108 U/L (38-126); Creatine Kinase 287 U/L (30-135)
--- NOTE | 2023-03-01 10:29 | XR ---
EXAMINATION TYPE: XR chest 1V portable DATE OF EXAM: 03/01/2023 9:50 AM CLINICAL INDICATION:Female, 82 years old with history of fall; COMPARISON: Chest radiographs from 06/17/2022. TECHNIQUE: XR chest 1V portable Frontal view of the chest. FINDINGS: Lungs/Pleura: Right midlung 17 mm nodular-like opacity. There is no evidence of pleural effusion, foc al consolidation, or pneumothorax. Pulmonary vascularity: Unremarkable. Heart/mediastinum: Cardiomediastinal silhouette is enlarged and stable. Musculoskeletal: No acute osseous pathology. IMPRESSION: 1. Right midlung airspace opacity which could represent summation artifact versus pulmonary nodule. Attention on short-term follow-up. If finding persists consider CT chest. No other acute process visu alized. 2. Mild cardiomegaly
[2023-03-01 10:30] LABS: INR 1.2 (<1.2); Partial Thromboplastin Time 23.1 sec (22.0-30.0); Prothrombin Time 12.6 sec (10.0-12.5)
[2023-03-01] MEDS ORDERED: SODIUM CHLORIDE 0.9% 1,000 ML IV ONE (11:53)
[2023-03-01] MEDS: SODIUM CHLORIDE 0.9% 1,000 ML IV SCH (12:13)
[2023-03-01] MEDS ORDERED: NALOXONE 0.4 MG/ML 1 ML VIAL IV PRN (14:04)
--- NOTE | 2023-03-01 14:35 | P.HPIM ---
History of Present Illness This is a pleasant 82 years old female with past medical history of dementia, atrial fibrillation, hypertension, hyperlipidemia, syncope Patient's was her early this morning at 8:00 and they called police and found her about quarter mile from the house on the floor for about an hour per staff, Patient herself is confused to time place and person but she couldn't recognize her family members, she follows commands and she can say she is hungry or to be cleaned per staff. However patient denies any specific complaints for me no chest pain or dyspnea. No change in urine or bowel habits. No fever. No headache dizziness weakness or numbness currently. Patient vitals stable, she is hypothermic on admission She has unremarkable CBC, INR, BMP, LFTs. Potassium 4.3 BUN of about the 6 Computed tomography scan of the brain is negative for acute process CT of the head and neck showing no aneurysm or stenosis. No fracture of the cervical spine. Groundglass infiltrate in the right upper lobe with moderately patulous upper thoracic esophagus suspicious for achalasia EKG showing atrial fibrillation's with a rate of 101 Review of Systems Review of systems CONSTITUTIONAL: No fever, no malaise, no fatigue. HEENT: No recent visual problems or hearing problems. Denied any sore throat. CARDIOVASCULAR: No orthopnea, PND, no palpitations, no syncope. PULMONARY: No shortness of breath, no cough, no hemoptysis. GASTROINTESTINAL: No diarrhea, no nausea, no vomiting, no abdominal pain. Normoactive bowel sounds. NEUROLOGICAL: No headaches, no weakness, no numbness. HEMATOLOGICAL: Denies any bleeding or petechiae. GENITOURINARY: Denies any burning micturition, frequency, or urgency. MUSCULOSKELETAL/RHEUMATOLOGICAL: Denies any joint pain, swelling, or any muscle pain. ENDOCRINE: Denies any polyuria or polydipsia. Past Medical History Past Medical History: Atrial Fibrillation, Dementia, Hyperlipidemia, Hyperten kiana, Syncope, Vascular Disorder Additional Past Medical History / Comment(s): episode of passing out briefly last year, unsure of cause History of Any Multi-Drug Resistant Organisms: None Reported Past Surgical History: Hysterectomy Additional Past Surgical History / Comment(s): R carotid endartectomy, colonoscopy Past Anesthesia/Blood Transfusion Reactions: No Reported Reaction Past Psychological History: No Psychological Hx Reported Smoking Status: Former smoker Past Alcohol Use History: None Reported Past Drug Use History: None Reported - Past Family History Father Additional Family Medical History / Comment(s): Heart problems/blood clot, at the age of 84 yrs. Mother Family Medical History: No Reported History Additional Family Medical History / Comment(s): Mother lived to be 93 yrs old. Family Family Medical History: No Reported History Medications and Allergies Home Medications Medication Instructions Recorded Confirmed Type RX: Atorvastatin [Lipitor] 20 mg PO HS 02/08/21 06/17/22 History RX: Benazepril [Lotensin] 10 mg PO HS 02/08/21 06/17/22 History RX: Cholecalciferol [Vitamin D3 50 mcg PO DAILY 02/08/21 06/17/22 History (25 Mcg = 1000 Iu)] RX: Apixaban [Eliquis] 2.5 mg PO BID #60 tab 02/09/21 06/17/22 Rx RX: Metoprolol Succinate (ER) 50 mg PO DAILY #30 tablet 02/09/21 06/17/22 Rx [Toprol XL] RX: Memantine HCl 10 mg PO BID 03/06/22 06/17/22 History Donepezil 23mg 23 mg PO HS 06/17/22 06/17/22 History Allergies Allergy/AdvReac Type Severity Reaction Status Date / Time No Known Allergies Allergy Verified 06/17/22 17:35 Physical Exam Vitals: Vital Signs Pulse Resp BP Pulse Ox 03/01/23 09:06 98 20 141/108 99 Intake and Output 02/28/23 03/01/23 03/01/23 22:59 06:59 14:59 Other: Weight 51.6 kg -GENERAL: The patient is alert and oriented x0, not in any acute distress. Well developed, well nourished. HEENT: Pupils are round and equally reacting to light. EOMI. No scleral icterus. No conjunctival pallor. Normocephalic, atraumatic. No pharyngeal erythema. No thyromegaly. CARDIOVASCULAR: S1 and S2 present. No murmurs, rubs, or gallops. PULMONARY: Chest is clear to auscultation, no wheezing , no crackles. ABDOMEN: Soft, nontender, nondistended, normoactive bowel sounds. No palpable organomegaly. MUSCULOSKELETAL: No joint swelling or deformity. EXTREMITIES: No cyanosis, clubbing, or pedal edema. NEUROLOGICAL: Gross neurological examination did not reveal any focal deficits. -SKIN: No rashes. no petechiae. Multiple throws of the face and both knees, mil d and inhalant Results CBC & Chem 7: 03/01/23 09:25 03/01/23 09:25 Labs: Abnormal Lab Results - Last 24 Hours (Table) 03/01/23 03/01/23 03/01/23 Range/Units 09:25 09:25 09:25 Hct 47.8 H (34.0-46.0) % MCHC 30.6 L (31.0-37.0) g/dL RDW 15.6 H (11.5-15.5) % PT 12.6 H (10.0-12.5) sec INR 1.2 H (<1.2) Potassium 5.3 H (3.5-5.1) mmol/L Carbon Dioxide 17 L (22-30) mmol/L BUN 18 H (7-17) mg/dL Glucose 216 H (74-99) mg/dL Plasma Lactic Acid Dave (0.7-2.0) mmol/L AST 60 H (14-36) U/L Creatine Kinase 287 H (30-135) U/L 03/01/23 03/01/23 Range/Units 09:25 13:00 Hct (34.0-46.0) % MCHC (31.0-37.0) g/dL RDW (11.5-15.5) % PT (10.0-12.5) sec INR (<1.2) Potassium (3.5-5.1) mmol/L Carbon Dioxide (22-30) mmol/L BUN (7-17) mg/dL Glucose (74-99) mg/dL Plasma Lactic Acid Dave 8.2 H* 5.3 H* (0.7-2.0) mmol/L AST (14-36) U/L Creatine Kinase (30-135) U/L Assessment and Plan Assessment: Altered mental status most likely related to her worsening dementia Hypothermia, present on admission secondary to exposure to cold weather outside. Prior to hospitalization Fall on the floor for about one hour as per staff Dementia Right upper lung lobe groundglass opacity Right middle lung nodule Paroxysmal atrial fibrillation Bruises in both knees and posterior scalp laceration Plan: Continue with IV hydration, saline Check for additional stone and and CRP Check TSH and vitamin B12 Seroquel when necessary Labs and medication were reviewed.. Continue same treatment. Continue with symptomatic treatment. Resume home medication. Monitor labs and vitals. DVT and GI prophylaxis. Further recommendations as per clinical course of the patient DVT prophylaxis: Subcutaneous heparin GI Prophylaxis: Pepcid PT/OT: Pending Prognosis is guarded
[2023-03-01] MEDS ORDERED: DILTIAZEM DRIP BOLUS FROM BAG 1 MG SOLN IV ONE (14:39)
[2023-03-01] MEDS: DILTIAZEM 125 MG in SODIUM CHLORIDE 0.9% 100 ML IV SCH (15:06)
[2023-03-01 18:23] LABS: Appearance,Urine Cloudy (Clear); Bacteria,Urine Occasional /hpf; Bilirubin,Urine Negative (Negative); Blood,Urine Moderate (Negative); Color,Urine Light Yellow; Glucose,Urine (UA) 3+ (Negative); Hyaline Casts,Urine 4 /lpf (0-2); Ketones,Urine Trace (Negative); Leukocyte Esterase,Urine Negative (Negative); Mucus,Urine Few /hpf; Nitrite,Urine Negative (Negative); Protein,Urine 1+ (Negative); RBC,Urine 12 /hpf (0-5); Specific Gravity,Urine 1.016 (1.001-1.035); Squamous Epithelial Cell,Urine 4 /hpf (0-4); Urobilinogen,Urine <2.0 mg/dL (<2.0); WBC,Urine 1 /hpf (0-5)
[2023-03-01] MEDS: QUEtiapine 25 MG TAB PO SCH (19:01)
[2023-03-02] MEDS: ATORVASTATIN 20 MG TAB PO SCH ×2 (00:07→20:25)
[2023-03-02] MEDS: HEPARIN SODIUM,PORCINE 5,000 UNIT/ML 1 ML VIAL SQ SCH ×3 (00:07→20:25)
[2023-03-02] MEDS: MEMANTINE 10 MG TAB PO SCH ×3 (00:07→20:24)
[2023-03-02] MEDS: METOPROLOL SUCCINATE (ER) 50 MG TAB.ER.24H PO SCH ×2 (00:07→08:55)
[2023-03-02] MEDS: lisinopriL 10 MG TAB PO SCH ×2 (00:07→20:25)
[2023-03-02] MEDS: DONEPEZIL 10 MG TAB PO SCH ×3 (00:07→20:25)
[2023-03-02 07:27] LABS: Anisocytosis Slight; Basophils % (A) 0 %; Eosinophils % (A) 0 %; HCT 38.5 % (34.0-46.0); HGB 12.2 gm/dL (11.4-16.0); Hypochromasia Slight; Lymphocytes # (A) 1.3 k/uL (1.0-4.8); Lymphocytes % (A) 14 %; MCHC 31.7 g/dL (31.0-37.0); MCV 88.6 fL (80.0-100.0); Mean Platelet Volume 7.9; Monocytes # (A) 0.4 k/uL (0-1.0); Monocytes % (A) 5 %; Neutrophils # (A) 7.6 k/uL (1.3-7.7); Neutrophils % (A) 81 %; Platelet Count 201 k/uL (150-450); RBC 4.35 m/uL (3.80-5.40); RDW 16.1 % (11.5-15.5); WBC 9.4 k/uL (3.8-10.6)
[2023-03-02 07:57] LABS: African American GFR (CKD) >90 (>60 ml/min/1.73 sqM); Anion Gap 10 mmol/L; Blood Urea Nitrogen 15 mg/dL (7-17); Carbon Dioxide 24 mmol/L (22-30); Chloride 107 mmol/L (98-107); Glucose 87 mg/dL (74-99); Non-African American GFR(CKD) 84 (>60 ml/min/1.73 sqM); Potassium 4.1 mmol/L (3.5-5.1); Sodium 141 mmol/L (137-145)
[2023-03-02] MEDS: CHOLECALCIFEROL 25 MCG (1000 IU) TABLET PO SCH (08:55)
[2023-03-02] MEDS: QUEtiapine 25 MG TAB PO SCH (08:55)
--- NOTE | 2023-03-02 15:59 | XR ---
EXAMINATION TYPE: XR hand complete RT DATE OF EXAM: 03/02/2023 3:24 PM CLINICAL INDICATION:Female, 82 years old with history of fall; MERGED WITH [facility] COMPARISON: None TECHNIQUE: XR hand complete RT Frontal, lateral and oblique views were obtained. FINDINGS: Normal alignment of the visualized joints. No acute osseous pathology is identified. No e vidence of soft tissue swelling. IMPRESSION: Soft tissue swelling without evidence of fracture..
[2023-03-02] MEDS: DILTIAZEM 125 MG in SODIUM CHLORIDE 0.9% 100 ML IV SCH (16:47)
[2023-03-02] MEDS: SODIUM CHLORIDE 0.9% 1,000 ML IV SCH ×2 (18:50→20:16)
[2023-03-02] MEDS ORDERED: FUROSEMIDE 10 MG/ML 2 ML VIAL IV ONE (20:21)
--- NOTE | 2023-03-02 20:25 | P.PN ---
Subjective This is a pleasant 82 years old female with past medical history of dementia, atrial fibrillation, hypertension, hyperlipidemia, syncope Patient's was her early this morning at 8:00 and they called police and found her about quarter mile from the house on the floor for about an hour per staff, Patient herself is confused to time place and person but she couldn't recognize her family members, she follows commands and she can say she is hungry or to be cleaned per staff. However patient denies any specific complaints for me no chest pain or dyspnea. No change in urine or bowel habits. No fever. No headache dizziness weakness or numbness currently. Patient vitals stable, she is hypothermic on admission She has unremarkable CBC, INR, BMP, LFTs. Potassium 4.3 BUN of about the 6 Computed tomography scan of the brain is negative for acute process CT of the head and neck showing no aneurysm or stenosis. No fracture of the cer vical spine. Groundglass infiltrate in the right upper lobe with moderately patulous upper thoracic esophagus suspicious for achalasia EKG showing atrial fibrillation's with a rate of 101 03/02/2023 Patient is a pleasantly confused, she was able to walk to the bathroom but probably, of course with the help of the staff Cardizem drip was running at 2.5 mg/h with heart rate 80 per minute, we'll don't stop Cardizem drip and keep monitoring heart rate, she is on metoprolol 50 mg, she is not on anticoagulation. Patient is still not eating much, we are going to encourage her to eat. We will change her IV fluids to half-normal saline at 50 mL/h and give one-time dose of IV Lasix for fluid overload. Hand x-ray showing soft tissue swelling no fracture. Labs look stable. Broadcalcitonin slightly elevated at 0.45 We going to repeat urinalysis and chest x-ray. Patient with no fever or leukocytosis and no antibiotics for now Discussed with the bedside nurse. Seroquel 12.5 for agitation and vitamin B12 replacement therapy initiated. Discussed with the staff Review of systems CONSTITUTIONAL: No fever, no malaise, no fatigue. HEENT: No recent visual problems or hearing problems. Denied any sore throat. CARDIOVASCULAR: No orthopnea, PND, no palpitations, no syncope. PULMONARY: No shortness of breath, no cough, no hemoptysis. Active Medications Generic Name Dose Route Start Last Admin Trade Name Freq PRN Reason Stop Dose Admin Acetaminophen 650 mg 03/01/23 14:04 Acetaminophen Tab 325 Mg Tab PO Q6HR PRN Mild Pain or Fever > 100.5 Atorvastatin Calcium 20 mg 03/01/23 21:00 03/02/23 00:07 Atorvastatin 20 Mg Tab PO 20 mg HS ARIA Administration Cholecalciferol 50 mcg 03/02/23 09:00 03/02/23 08:55 Cholecalciferol 25 Mcg (1000 Iu) Tablet PO 50 mcg DAILY ARIA Administration Cyanocobalamin 1,000 mcg 03/02/23 20:15 Cyanocobalamin 1,000 Mcg/Ml 1 Ml Vial IM 03/04/23 09:01 DAILY ARIA Cyanocobalamin 1,000 mcg 03/05/23 09:00 Cyanocobalamin 500 Mcg Tab PO DAILY ARIA Donepezil HCl 10 mg 03/01/23 21:00 03/02/23 08:55 Donepezil 10 Mg Tab PO 10 mg BID ARIA Administration Furosemide 20 mg 03/02/23 20:21 Furosemide 10 Mg/Ml 2 Ml Vial IV 03/02/23 20:22 ONCE ONE Heparin Sodium (Porcine) 5,000 unit 03/01/23 21:00 03/02/23 08:55 Heparin Sodium,Porcine 5,000 Unit/Ml 1 Ml Vial SQ 5,000 unit Q12HR ARIA Administration Diltiazem HCl 125 mg/ Sodium 125 mls @ 5 mls/hr 03/01/23 14:45 03/02/23 16:47 Chloride IV Not Given .Q24H ARIA 5 MG/HR Dextrose/Sodium Chloride 1,000 mls @ 50 mls/hr 03/02/23 20:30 Dextrose 5%-1/2ns Iv Soln IV .Q20H ARIA Lisinopril 10 mg 03/01/23 21:00 03/02/23 00:07 Lisinopril 10 Mg Tab PO 10 mg HS ARIA Administration Memantine 10 mg 03/01/23 21:00 03/02/23 08:55 Memantine 10 Mg Tab PO 10 mg BID ARIA Administration Metoprolol Succinate 50 mg 03/01/23 21:00 03/02/23 08:55 Metoprolol Succinate (Er) 50 Mg Tab.Er.24h PO 50 mg DAILY ARIA Administration Naloxone HCl 0.2 mg 03/01/23 14:04 Naloxone 0.4 Mg/Ml 1 Ml Vial IV Q2M PRN Opioid Reversal Quetiapine Fumarate 12.5 mg 03/01/23 14:30 03/02/23 08:55 Quetiapine 25 Mg Tab PO 12.5 mg DAILY ARIA Administration Objective - Vital Signs Vital signs: Vital Signs Temp 98.5 F 03/02/23 16:00 Pulse 86 03/02/23 16:00 Resp 16 03/02/23 16:00 BP 136/72 03/02/23 16:00 Pulse Ox 94 L 03/02/23 16:00 FiO2 Intake & Output 03/01/23 03/02/23 03/02/23 18:59 06:59 18:59 Intake Total 0 Balance 0 Weight 51.6 kg Intake: Oral 0 Other: Voiding Method Toilet Toilet Diaper Diaper # Voids 3 - Exam -GENERAL: The patient is awake, confused, not in any acute distress. Well developed, well nourished. HEENT: Pupils are round and equally reacting to light. EOMI. No scleral icterus. No conjunctival pallor. Normocephalic, atraumatic. No pharyngeal erythema. No thyromegaly. CARDIOVASCULAR: S1 and S2 present. No murmurs, rubs, or gallops. PULMONARY: Chest is clear to auscultation, no wheezing , no crackles. ABDOMEN: Soft, nontender, nondistended, normoactive bowel sounds. No palpable organomegaly. MUSCULOSKELETAL: No joint swelling or deformity. EXTREMITIES: No cyanosis, clubbing, or pedal edema. NEUROLOGICAL: Gross neurological examination did not reveal any focal deficits. SKIN: No rashes. no petechiae. - Labs CBC & Chem 7: 03/02/23 06:14 03/02/23 06:14 Labs: Abnormal Lab Results - Last 24 Hours (Table) 03/01/23 03/02/23 03/02/23 Range/Units 19:16 06:14 06:14 RDW 16.1 H (11.5-15.5) % Plasma Lactic Acid Dave 2.3 H* (0.7-2.0) mmol/L Procalcitonin 0.45 H (0.02-0.09) ng/mL Assessment and Plan Assessment: Altered mental status most likely related to her worsening dementia Hypothermia, present on admission secondary to exposure to cold weather outside. Prior to hospitalization Fall on the floor for about one hour as per staff A. fib and RVR Anorexia Dementia Right upper lung lobe groundglass opacity Right middle lung nodule Paroxysmal atrial fibrillation Bruises in both knees and posterior scalp laceration Plan: Continue with IV hydration, D5 half-normal saline. One-time dose of Lasix Postop Cardizem drip and continue with metoprolol 50 mg may increase the dose as needed Recheck urinalysis and chest x-ray Start vitamin B12 replacement therapy Seroquel when necessary Labs and medication were reviewed.. Continue same treatment. Continue with symptomatic treatment. Resume home medication. Monitor labs and vitals. DVT and GI prophylaxis. Further recommendations as per clinical course of the patient DVT prophylaxis: Subcutaneous heparin GI Prophylaxis: Pepcid PT/OT: Pending Prognosis is guarded
[2023-03-02] MEDS ORDERED: METOPROLOL TARTRATE 25 MG TAB PO STA (20:40)
[2023-03-02] MEDS: DEXTROSE 5%-0.45% NACL 1,000 ML IV SCH (21:44)
[2023-03-02] MEDS: CYANOCOBALAMIN 1,000 MCG/ML 1 ML VIAL IM SCH (21:44)
[2023-03-02] MEDS: ACETAMINOPHEN TAB 325 MG TAB PO PRN (21:45)
[2023-03-03 02:07] LABS: Appearance,Urine Clear (Clear); Bilirubin,Urine Negative (Negative); Blood,Urine Moderate (Negative); Color,Urine Colorless; Glucose,Urine (UA) Negative (Negative); Ketones,Urine Negative (Negative); Leukocyte Esterase,Urine Negative (Negative); Mucus,Urine Rare /hpf; Nitrite,Urine Negative (Negative); Protein,Urine Negative (Negative); RBC,Urine 1 /hpf (0-5); Specific Gravity,Urine 1.005 (1.001-1.035); Urobilinogen,Urine <2.0 mg/dL (<2.0); WBC,Urine <1 /hpf (0-5)
[2023-03-03] MEDS ORDERED: FUROSEMIDE 10 MG/ML 2 ML VIAL IV ONE (08:45)
[2023-03-03] MEDS ORDERED: HEPARIN SOD,PORK IN 0.45% NACL 25,000 UNIT in 0.45% NACL 1 250ML.BAG IV SCH (08:45)
[2023-03-03] MEDS ORDERED: HEPARIN SODIUM 1,000 UN/ML (10ML VL) IV ONE (08:45)
[2023-03-03] MEDS: QUEtiapine 25 MG TAB PO SCH (08:47)
[2023-03-03] MEDS: CYANOCOBALAMIN 1,000 MCG/ML 1 ML VIAL IM SCH (08:47)
[2023-03-03] MEDS: MEMANTINE 10 MG TAB PO SCH ×2 (08:47→20:25)
[2023-03-03] MEDS: CHOLECALCIFEROL 25 MCG (1000 IU) TABLET PO SCH (08:47)
[2023-03-03] MEDS: DONEPEZIL 10 MG TAB PO SCH ×2 (08:47→20:25)
[2023-03-03] MEDS: METOPROLOL SUCCINATE (ER) 50 MG TAB.ER.24H PO SCH (08:47)
[2023-03-03] MEDS ORDERED: METOPROLOL SUCCINATE (ER) 25 MG TAB.ER.24H PO SCH (09:00)
[2023-03-03] MEDS: DILTIAZEM 125 MG in SODIUM CHLORIDE 0.9% 100 ML IV SCH (09:10)
[2023-03-03 09:16] LABS: Anisocytosis Slight; Basophils % (A) 0 %; Eosinophils # (A) 0.1 k/uL (0-0.7); Eosinophils % (A) 1 %; Hypochromasia Slight; INR 1.2 (<1.2); Lymphocytes # (A) 1.3 k/uL (1.0-4.8); Lymphocytes % (A) 15 %; MCH 28.2 pg (25.0-35.0); MCHC 31.7 g/dL (31.0-37.0); MCV 89.1 fL (80.0-100.0); Mean Platelet Volume 8.1; Monocytes # (A) 0.4 k/uL (0-1.0); Monocytes % (A) 5 %; Neutrophils # (A) 6.7 k/uL (1.3-7.7); Neutrophils % (A) 78 %; Partial Thromboplastin Time 25.1 sec (22.0-30.0); Platelet Count 192 k/uL (150-450); Prothrombin Time 12.5 sec (10.0-12.5); RBC 4.61 m/uL (3.80-5.40); RDW 16.1 % (11.5-15.5); WBC 8.6 k/uL (3.8-10.6)
[2023-03-03] MEDS: DEXTROSE 5%-0.45% NACL 1,000 ML IV SCH ×2 (11:11→13:08)
--- NOTE | 2023-03-03 11:18 | XR ---
EXAMINATION TYPE: XR chest 1V DATE OF EXAM: 03/03/2023 COMPARISON: 03/01/2023 INDICATION: Short of breath TECHNIQUE: Single frontal view of the chest is obtained. FINDINGS: The heart size is normal. The pulmonary vasculature is normal. The lungs are clear. Previous nodular type density in the right upper lung field not identified on t he current exam IMPRESSION: 1. No acute pulmonary process. Follow-up be performed as clinically indicated
--- NOTE | 2023-03-03 11:53 | P.PN ---
Subjective This is a pleasant 82 years old female with past medical history of dementia, atrial fibrillation, hypertension, hyperlipidemia, syncope Patient's was her early this morning at 8:00 and they called police and found her about quarter mile from the house on the floor for about an hour per staff, Patient herself is confused to time place and person but she couldn't recognize her family members, she follows commands and she can say she is hungry or to be cleaned per staff. However patient denies any specific complaints for me no chest pain or dyspnea. No change in urine or bowel habits. No fever. No headache dizziness weakness or numbness currently. Patient vitals stable, she is hypothermic on admission She has unremarkable CBC, INR, BMP, LFTs. Potassium 4.3 BUN of about the 6 Computed tomography scan of the brain is negative for acute process CT of the head and neck showing no aneurysm or stenosis. No fracture of the cer vical spine. Groundglass infiltrate in the right upper lobe with moderately patulous upper thoracic esophagus suspicious for achalasia EKG showing atrial fibrillation's with a rate of 101 03/02/2023 Patient is a pleasantly confused, she was able to walk to the bathroom but probably, of course with the help of the staff Cardizem drip was running at 2.5 mg/h with heart rate 80 per minute, we'll don't stop Cardizem drip and keep monitoring heart rate, she is on metoprolol 50 mg, she is not on anticoagulation. Patient is still not eating much, we are going to encourage her to eat. We will change her IV fluids to half-normal saline at 50 mL/h and give one-time dose of IV Lasix for fluid overload. Hand x-ray showing soft tissue swelling no fracture. Labs look stable. Broadcalcitonin slightly elevated at 0.45 We going to repeat urinalysis and chest x-ray. Patient with no fever or leukocytosis and no antibiotics for now Discussed with the bedside nurse. Seroquel 12.5 for agitation and vitamin B12 replacement therapy initiated. Discussed with the staff 03/03/2023 Patient is still confused, she does not know where she is at, time or person, and baseline she is oriented 1 as per family. However she is more calm after adding Seroquel 12.5 mg. Patient was started on Cardizem drip for her A. fib, last night metoprolol 25 mg was provided but protected still was not control she was placed back on Cardizem drip and today her metoprolol XL was increased to 75 mL daily. Heparin drip was started, CT of the brain was negative for acute process but showing cerebral atrophy Repeat chest x-ray today showing no acute findings, urine analysis is unremarkable. Broadcalcitonin 0.45 Lactic acid came back to normal at 1.9 Patient currently on D5 half-normal saline at 50 mL per hour Patient is not eating much, therefore going to order a barium swallow. Speech evaluation tomorrow Also cardiology and neurology consult Discussed with the staff Objective - Vital Signs Vital signs: Vital Signs Temp 98.2 F 03/03/23 08:35 Pulse 88 03/03/23 08:35 Resp 16 03/03/23 08:35 BP 123/81 03/03/23 08:35 Pulse Ox 96 03/03/23 08:35 FiO2 Intake & Output 03/02/23 03/03/23 03/03/23 18:59 06:59 18:59 Intake Total 125 300 Output Total 220 Balance 125 80 Weight 53.4 kg Intake: Intake, IV Titration 125 100 Amount Dextrose 5%-0.45% NaCl 1, 100 000 ml @ 50 mls/hr IV . Q20H ARIA Rx#:[id number] Diltiazem 125 mg In 125 Sodium Chloride 0.9% 100 ml @ 5 MG/HR 5 mls/hr IV .Q24H ARIA Rx#:[id number] Oral 0 200 Output: Urine 220 Other: Voiding Method Toilet Toilet Toilet Diaper Diaper Diaper # Voids 1 1 - Exam -GENERAL: The patient is awake, confused, not in any acute distress. Well developed, well nourished. HEENT: Pupils are round and equally reacting to light. EOMI. No scleral icterus. No conjunctival pallor. Normocephalic, atraumatic. No pharyngeal erythema. No thyromegaly. CARDIOVASCULAR: S1 and S2 present. No murmurs, rubs, or gallops. PULMONARY: Chest is clear to auscultation, no wheezing , no crackles. ABDOMEN: Soft, nontender, nondistended, normoactive bowel sounds. No palpable organomegaly. MUSCULOSKELETAL: No joint swelling or deformity. EXTREMITIES: No cyanosis, clubbing, or pedal edema. NEUROLOGICAL: Gross neurological examination did not reveal any focal deficits. SKIN: No rashes. no petechiae. - Labs CBC & Chem 7: 03/03/23 08:34 03/02/23 06:14 Labs: Abnormal Lab Results - Last 24 Hours (Table) 03/02/23 03/03/23 03/03/23 Range/Units 06:14 00:19 08:34 RDW 16.1 H (11.5-15.5) % INR (<1.2) Procalcitonin 0.45 H (0.02-0.09) ng/mL Urine Blood Moderate H (Negative) Urine Mucus Rare H (None) /hpf 03/03/23 Range/Units 08:34 RDW (11.5-15.5) % INR 1.2 H (<1.2) Procalcitonin (0.02-0.09) ng/mL Urine Blood (Negative) Urine Mucus (None) /hpf Assessment and Plan Assessment: Altered mental status most likely related to her worsening dementia Hypothermia, present on admission secondary to exposure to cold weather outside. Prior to hospitalization Fall on the floor for about one hour as per staff A. fib and RVR Anorexia Dementia Right upper lung lobe groundglass opacity Right middle lung nodule Paroxysmal atrial fibrillation Bruises in both knees and posterior scalp laceration Plan: Continue with IV hydration, D5 half-normal saline. One-time dose of Lasix Postop Cardizem drip and continue with metoprolol 75 mg may increase the dose as needed Recheck barium swallow and speech therapy evaluation. Battery consult Continue with vitamin B12 replacement therapy Seroquel when necessary Labs and medication were reviewed.. Continue same treatment. Continue with symptomatic treatment. Resume home medication. Monitor labs and vitals. DVT and GI prophylaxis. Further recommendations as per clinical course of the patient DVT prophylaxis: Subcutaneous heparin GI Prophylaxis: Pepcid PT/OT: Pending Prognosis is guarded
--- NOTE | 2023-03-03 12:55 | P.CNNES ---
History of Present Illness Consult date: 03/03/23 Requesting physician: Luis Enrique Kennedy Reason for Consult: ams History of Present Illness: This is an 82-year-old woman with history of dementia who presented emergency department because of confusion. is at bedside and provides the history. According to the 2 days ago (03/01/2023) patient woke up early in the morning and around early 8:00 he went to look for the patient and she was not in the bed or in the house so he called 911 and he stated that he called 911 around 8:05 to 8:10 AM. Last normal state was around midnight. And she was doing well the day prior. It seems a bit the patient was found 700 feet with inside her house around that [facility] area where she resides. She was found on the floor face down. She had bruises throughout the body. According to the when the EMS tried the to arouse her and she stated stated that she was in pain. Recent fevers or sick contacts. No history of stroke. She has not had this episode like this before. About 2 years ago while she was in [employer] while bending down as she had a syncopal episode and had some "spit coming out of mouth". She does not have any jerking of any extremities, urinary or bowel incontinence. The episode was brief. She did not seek any medical attention since it was very brief. No history of 5 seizures. She does have underlying dementia and she is oriented to self and possibly place. She is able to feed herself using the bathroom. Ambulates on her own now. She does have underlying atrial fibrillation and she is on Ahlquist and compliant with medication. She has history of significant right carotid stenosis in which she had CEA about 15 years ago. Upon asking the patient was transpired she stated nothing happened. She denies of any headache any nausea any vomiting any visual disturbance any focal weakness. Some of the workup during his hospital visit consisted of: She is afebrile. WBC is within normal limits. Plasma Lactic acid on initial presentation is 8.2 and latest 1.9 TSH: 0.773 Vitamin B12: 272 Initial serum glucose is 216. Creatinine, sodium, calcium, magnesium are within normal limits CT of the head is reported as no acute intracranial CT abnormality. Atrophy and chronic microvascular ischemic disease CT cervical spine is reported as no evidence of cervical spine fracture or traumatic, limited. Mild to moderate cervical spondylosis. Groundglass infiltrates in the right upper lobe, may reflect infection/inflammatory process. Mild patulous upper thoracic esophagus, achalasia or distal esophagus process is considered. Review of Systems Limited but the positive and negative as per HPI. Past Medical History Past Medical History: Atrial Fibrillation, Dementia, Hyperlipidemia, Hypertension, Syncope, Vascular Disorder Additional Past Medical History / Comment(s): hx of syncopal episode, reason unknown History of Any Multi-Drug Resistant Organisms: None Reported Past Surgical History: Hysterectomy Additional Past Surgical History / Comment(s): R carotid endartectomy, colonoscopy Past Anesthesia/Blood Transfusion Reactions: No Reported Reaction Past Psychological History: No Psychological Hx Reported Additional Psychological History / Comment(s): Pt resides with her spouse. Spouse drives and assists with her medications. Pt has dementia Smoking Status: Former smoker Past Alcohol Use History: None Reported Additional Past Alcohol Use History / Comment(s): Pt started smoking in 1959 and quit in 1979 Past Drug Use History: None Reported - Past Family History Father Additional Family Medical History / Comment(s): Heart problems/blood clot, at the age of 84 yrs. Mother Family Medical History: No Reported History Additional Family Medical History / Comment(s): Mother lived to be 93 yrs old. Family Family Medical History: No Reported History Medications and Allergies Home Medications Medication Instructions Recorded Confirmed Type Atorvastatin [Lipitor] 20 mg PO HS 02/08/21 03/01/23 History Benazepril [Lotensin] 10 mg PO HS 02/08/21 03/01/23 History Cholecalciferol [Vitamin D3 (25 50 mcg PO DAILY 02/08/21 03/01/23 History Mcg = 1000 Iu)] Apixaban [Eliquis] 2.5 mg PO BID #60 tab 02/09/21 03/01/23 Rx Metoprolol Succinate (ER) [Toprol 50 mg PO DAILY #30 tablet 02/09/21 03/01/23 Rx XL] Memantine HCl 10 mg PO BID 03/06/22 03/01/23 History Donepezil HCl [Aricept] 10 mg PO BID 03/01/23 03/01/23 History Allergies Allergy/AdvReac Type Severity Reaction Status Date / Time No Known Allergies Allergy Verified 03/01/23 14:36 Physical Examination - Vital Signs Vital Signs: Vital Signs Temp Pulse Resp BP Pulse Ox 03/03/23 12:04 95 03/03/23 11:13 98.0 F 74 16 116/75 96 03/03/23 08:35 98.2 F 88 16 123/81 96 03/03/23 04:00 97.9 F 87 17 132/78 95 03/03/23 02:00 97 16 03/03/23 00:00 98.0 F 126 H 17 131/82 96 03/02/23 20:00 97.9 F 92 16 141/87 96 03/02/23 16:00 98.5 F 86 16 136/72 94 L 03/02/23 14:00 80 16 Intake and Output 03/02/23 03/03/23 03/03/23 22:59 06:59 14:59 Intake Total 425 Output Total 220 Balance 205 Intake: Intake, IV Titration 225 Amount Dextrose 5%-0.45% NaCl 1, 100 000 ml @ 50 mls/hr IV . Q20H ARIA Rx#:[id number] Diltiazem 125 mg In 125 Sodium Chloride 0.9% 100 ml @ 5 MG/HR 5 mls/hr IV .Q24H ARIA Rx#:[id number] Oral 200 Output: Urine 220 Other: Voiding Method Toilet Toilet Toilet Diaper Diaper Diaper # Voids 1 Weight 53.4 kg General: Lying in bed and is not in acute distress. HENT: Bruises over the face. INTEGUMENTARY: Different bruises in left hand, face. NEURO: Very limited. She's oriented to self. With options she correctly stated the patient's name. She stated she is not at home but could not tell me which is at. She was able to name objects such as watch and glasses. Language is limited but no aphasia t hat's appreciable Pupils are round equal and is about 2-3 mm bilaterally and reactive to light. Extraocular movements intact no nystagmus. No facial weakness. No dysarthria. Tongue is midline and moved [id number] with and difficulties. No tongue bite the is noted. Motor the strength is hard to assess individual muscle strength because of her cooperation but is able to lift up all extremities above gravity symmetrically. Sensation patient states it's normal touch throughout Cerebellar is normal finger to nose bilaterally. Reflexes is hard to assess because of her cooperation Plantars: Mute bilaterally. Results - Laboratory Findings CBC and BMP: 03/03/23 08:34 03/02/23 06:14 Abnormal Lab Findings: Abnormal Labs 03/01/23 03/01/23 03/01/23 09:25 09:25 09:25 Hct 47.8 H MCHC 30.6 L RDW 15.6 H PT 12.6 H INR 1.2 H Potassium Carbon Dioxide BUN Glucose Plasma Lactic Acid Dave AST Creatine Kinase Procalcitonin Urine Appearance Cloudy H Urine Protein 1+ H Urine Glucose (UA) 3+ H Urine Ketones Trace H Urine Blood Moderate H Urine RBC 12 H Urine Bacteria Occasional H Hyaline Casts 4 H Urine Mucus Few H 03/01/23 03/01/23 03/01/23 09:25 09:25 13:00 Hct MCHC RDW PT INR Potassium 5.3 H Carbon Dioxide 17 L BUN 18 H Glucose 216 H Plasma Lactic Acid Dave 8.2 H* 5.3 H* AST 60 H Creatine Kinase 287 H Procalcitonin Urine Appearance Urine Protein Urine Glucose (UA) Urine Ketones Urine Blood Urine RBC Urine Bacteria Hyaline Casts Urine Mucus 03/01/23 03/01/23 03/02/23 16:08 19:16 06:14 Hct MCHC RDW PT INR Potassium Carbon Dioxide BUN Glucose Plasma Lactic Acid Dave 2.5 H* 2.3 H* AST Creatine Kinase Procalcitonin 0.45 H Urine Appearance Urine Protein Urine Glucose (UA) Urine Ketones Urine Blood Urine RBC Urine Bacteria Hyaline Casts Urine Mucus 03/02/23 03/03/23 03/03/23 06:14 00:19 08:34 Hct MCHC RDW 16.1 H 16.1 H PT INR Potassium Carbon Dioxide BUN Glucose Plasma Lactic Acid Dave AST Creatine Kinase Procalcitonin Urine Appearance Urine Protein Urine Glucose (UA) Urine Ketones Urine Blood Moderate H Urine RBC Urine Bacteria Hyaline Casts Urine Mucus Rare H 03/03/23 08:34 Hct MCHC RDW PT INR 1.2 H Potassium Carbon Dioxide BUN Glucose Plasma Lactic Acid Dave AST Creatine Kinase Procalcitonin Urine Appearance Urine Protein Urine Glucose (UA) Urine Ketones Urine Blood Urine RBC Urine Bacteria Hyaline Casts Urine Mucus Assessment and Plan Assessment: This is an 82-year-old woman with history of dementia who was found outside of her home on 03/01/2023 700 feet away from the her home on the floor face down. She has history of atrial fibrillation on Eliquis and history of remote right carotid endarterectomy. Presentation she had elevated lactic acid level. Encephalopathy of unknown etiology. Rule out stroke. Cannot rule out a seizure especially with episode of syncopal episode about 2 years ago that was short lasting but did not receive any medical attention. Very low normal vitamin B12 of 272 Dementia and at baseline she is oriented to 1-2 Atrial fibrillation on Eiquis Syncopal episode 2 years ago but did not receive any medical attention since was very brief and happened while at [employer] in which she was a bending down on sure she had a vasovagal other causes such as a seizure History of right carotid stenosis s/p Carotid endarectomy about 15 years ago Plan: Ordered MRI the brain, routine EEG, carotid duplex, 2-D echo I ordered ammonia level and lipid panel Toward the patient on Keppra 500 mg as a seizure prophylaxis especially with questionable syncopal episode in the past and I'm not sure if she had a seizure or vasovagal and this recent episode of confusion here if the EEG is negative for any seizure or discharges and MRI suggestive of a stroke then we'll discontinue Keppra. I notified the patient's and side effects of Keppra are agitation and behavioral. Patient is on heparin drip started by the primary team. She is on Lipitor 20 mg daily at bedtime. Patient is on vitamin B12 supplement with 1000 g IM once then the 1000 g by mouth after that. 24 hour neuro checks Cardiac monitoring PT OT and BEAD MACHINE OPERATOR are consulted Cardiology is consulted We'll defer the rest of the medical measure the primary team For DVT prophylaxis the patient is on subcu heparin Plan discussed and length with the patient's was at bedside and her nurse Thank you for the consultation. Time with Patient: Greater than 30
[2023-03-03] MEDS: levETIRAcetam 500 MG TAB PO SCH ×2 (13:06→20:25)
--- NOTE | 2023-03-03 15:05 | US ---
EXAMINATION TYPE: US carotid duplex BILAT DATE OF EXAM: 03/03/2023 COMPARISON: NONE CLINICAL INDICATION: Female, 82 years old with history of stroke; patient fell, family states no stro ke, h/o right endarterectomy TECHNIQUE: Carotid duplex ultrasound examination. Indirect Doppler criteria was utilized. FINDINGS: EXAM MEASUREMENTS: RIGHT: Peak Systolic Velocity (PSV) cm/sec ----- Right CCA: 107.0 ----- Right ICA: 95.3 ----- Right ECA: 149.0 ICA/CCA ratio: 0.9 RIGHT: End Diastole cm/sec ----- Right CCA: 18.2 ----- Right ICA: 19.5 ----- Right ECA: 2.7 LEFT: Peak Systolic Velocity (PSV) cm/sec ----- Left CCA: 107.0 ----- Left ICA: 99.4 ----- Left ECA: 316.0 ICA/CCA ratio: 0.9 LEFT: End Diastole cm/sec ----- Left CCA: 26.6 ----- Left ICA: 28.6 ----- Left ECA: 14.3 VERTEBRALS (direction of flow): Right Vertebral: Antegrade Left Vertebral: Antegrade Rhythm: Normal MOLECULAR SPECTROSCOPIST NOTES: Heterogeneous plaque bilaterally, more at right bulb, increased velocity noted on left ECA, otherwise no significant stenosis seen IMPRESSION: Less than 50% stenosis of the bilateral carotid bifurcations. Criteria for Assigning % of Stenosis / Diameter reduction (Estimation based on the indirect measurements of the internal carotid artery velocities (ICA PSV). 1. Normal (no stenosis)=ICA PSV < 125 cm/s: ratio < 2.0: ICA EDV<40 cm/s. 2. Less than 50% stenosis=ICA PSV < 125 cm/s: ratio < 2.0: ICA EDV<40 cm/s. 3. 50 to 69% stenosis=ICA PSV of 125 to 230 cm/s: ration 2.0 ? 4.0: ICA EDV 40-100 cm/s. 4. Greater than 70% stenosis to near occlusion= ICA PSV > 230 cm/s: ratio > 4.0: ICA EDV > 100 cm/s. 5. Near occlusion= ICA PSV velocities may be low or undetectable: variable ratio and ICA EDV. 6. Total occlusion=unable to detect flow.
--- NOTE | 2023-03-03 16:00 | P.CRDCN ---
History of Present Illness Consult date: 03/03/23 History of present illness: HISTORY OF PRESENTING ILLNESS 81-year-old with history of dementia, chronic atrial fibrillation on anti- cognition with Eliquis. Prior history of carotid endarterectomy on right side Patient is awake but not oriented to time place and person. History is provided by the at bedside. reports that 2 days ago on 03/01/2023 patient woke up early in the morning and when he went out to look for the jose ent he did not find her in the bed so he called for 911. Patient was found around 700 feet outside of the house around the [facility] media. She was found on floor face down. She had bruises throughout her body. On admission she was afebrile, labs shows a TSH of 0.017. Sodium 141 cooperation 5.3, creatinine 0.7, hemoglobin 14. Procal was 0.4 and elevated Her ECG showed rate controlled atrial fibrillation REVIEW OF SYSTEMS 14 point review of system is negative except what is mentioned above in HPI. PHYSICAL EXAMINATION Vital signs reviewed. Head: Normocephalic. Eyes: Sclerae nonicteric. Neck: Brisk carotid upstroke, no jugular venous distention. Lungs: Clear to auscultation. Heart: Regular rate and rhythm, S1-S2, no S3, no murmur or rub. Abdomen: Soft nontender, positive bowel sounds no organomegaly. Extremities: No edema, intact distal pulses. Neuro: Alert, oritented, no focal deficits ASSESSMENT Unwitnessed fall Encephalopathy Delirium on dementia Chronic atrial fibrillation Prior history of carotid endarterectomy right side PLAN I had a detailed discussion about the need for systemic anticoagulation, fall risk with the patient's . At this time patient's agrees that patient should be on systemic and evaluation to prevent any strokes. Discontinue IV heparin as so far, workup has been negative. We will start Eliquis 2.5 mg twice a day, atorvastatin 20 mg daily Continue metoprolol XL 50 mg daily Obtain echocardiogram Past Medical History Past Medical History: Atrial Fibrillation, Dementia, Hyperlipidemia, H ypertension, Syncope, Vascular Disorder Additional Past Medical History / Comment(s): hx of syncopal episode, reason unknown History of Any Multi-Drug Resistant Organisms: None Reported Past Surgical History: Hysterectomy Additional Past Surgical History / Comment(s): R carotid endartectomy, colonos copy Past Anesthesia/Blood Transfusion Reactions: No Reported Reaction Past Psychological History: No Psychological Hx Reported Additional Psychological History / Comment(s): Pt resides with her spouse. Spouse drives and assists with her medications. Pt has dementia Smoking Status: Former smoker Past Alcohol Use History: None Reported Additional Past Alcohol Use History / Comment(s): Pt started smoking in 1959 and quit in 1979 Past Drug Use History: None Reported - Past Family History Father Additional Family Medical History / Comment(s): Heart problems/blood clot, at the age of 84 yrs. Mother Family Medical History: No Reported History Additional Family Medical History / Comment(s): Mother lived to be 93 yrs old. Family Family Medical History: No Reported History Medications and Allergies Home Medications Medication Instructions Recorded Confirmed Type Atorvastatin [Lipitor] 20 mg PO HS 02/08/21 03/01/23 History Benazepril [Lotensin] 10 mg PO HS 02/08/21 03/01/23 History Cholecalciferol [Vitamin D3 (25 50 mcg PO DAILY 02/08/21 03/01/23 History Mcg = 1000 Iu)] Apixaban [Eliquis] 2.5 mg PO BID #60 tab 02/09/21 03/01/23 Rx Metoprolol Succinate (ER) [Toprol 50 mg PO DAILY #30 tablet 02/09/21 03/01/23 Rx XL] Memantine HCl 10 mg PO BID 03/06/22 03/01/23 History Donepezil HCl [Aricept] 10 mg PO BID 03/01/23 03/01/23 History Allergies Allergy/AdvReac Type Severity Reaction Status Date / Time No Known Allergies Allergy Verified 03/01/23 14:36 Physical Exam Vitals: Vital Signs Temp Pulse Resp BP Pulse Ox 03/03/23 15:37 97.4 F L 72 20 128/75 94 L 03/03/23 13:24 74 03/03/23 12:04 95 03/03/23 11:13 98.0 F 74 16 116/75 96 03/03/23 08:35 98.2 F 88 16 123/81 96 03/03/23 04:00 97.9 F 87 17 132/78 95 03/03/23 02:00 97 16 03/03/23 00:00 98.0 F 126 H 17 131/82 96 03/02/23 20:00 97.9 F 92 16 141/87 96 Intake and Output 03/03/23 03/03/23 03/03/23 06:59 14:59 22:59 Intake Total 37.487 0 Balance 37.487 0 Intake: Intake, IV Titration 37.487 0 Amount Heparin Sod,Pork in 0.45% 37.487 0 NaCl 25,000 unit In 0.45 % NaCl 1 250ml.bag @ 12 UNITS/KG/HR 6.408 mls/hr IV .Q24H [facility] Rx#: [id number] Other: Voiding Method Toilet Toilet Diaper Diaper # Voids 1 1 # Bowel Movements 1 Weight 53.4 kg Results 03/03/23 08:34 03/02/23 06:14 Coagulation 03/03/23 03/03/23 Range/Units 08:34 13:54 PT 12.5 (10.0-12.5) sec APTT 25.1 104.5 H* (22.0-30.0) sec CBC 03/03/23 Range/Units 08:34 WBC 8.6 (3.8-10.6) k/uL RBC 4.61 (3.80-5.40) m/uL Hgb 13.0 (11.4-16.0) gm/dL Hct 41.0 (34.0-46.0) % Plt Count 192 (150-450) k/uL Current Medications Generic Name Dose Route Start Last Admin Trade Name Freq PRN Reason Stop Dose Admin Acetaminophen 650 mg 03/01/23 14:04 03/02/23 21:45 Acetaminophen Tab 325 Mg Tab PO 650 mg Q6HR PRN Administration Mild Pain or Fever > 100.5 Apixaban 2.5 mg 03/03/23 21:00 Apixaban 5 Mg Tab PO BID [facility] Protocol Atorvastatin Calcium 20 mg 03/01/23 21:00 03/02/23 20:25 Atorvastatin 20 Mg Tab PO 20 mg HS [facility] Administration Cholecalciferol 50 mcg 03/02/23 09:00 03/03/23 08:47 Cholecalciferol 25 Mcg (1000 Iu) Tablet PO 50 mcg DAILY [facility] Administration Cyanocobalamin 1,000 mcg 03/02/23 20:15 03/03/23 08:47 Cyanocobalamin 1,000 Mcg/Ml 1 Ml Vial IM 03/04/23 09:01 1,000 mcg DAILY [facility] Administration Cyanocobalamin 1,000 mcg 03/05/23 09:00 Cyanocobalamin 500 Mcg Tab PO DAILY [facility] Donepezil HCl 10 mg 03/01/23 21:00 03/03/23 08:47 Donepezil 10 Mg Tab PO 10 mg BID [facility] Administration Dextrose/Sodium Chloride 1,000 mls @ 40 mls/hr 03/02/23 20:30 03/03/23 13:08 Dextrose 5%-1/2ns Iv Soln IV Not Given .Q24H [facility] Levetiracetam 500 mg 03/03/23 13:30 03/03/23 13:06 Levetiracetam 500 Mg Tab PO 500 mg Q12HR [facility] Administration Lisinopril 10 mg 03/01/23 21:00 03/02/23 20:25 Lisinopril 10 Mg Tab PO 10 mg HS [facility] Administration Memantine 10 mg 03/01/23 21:00 03/03/23 08:47 Memantine 10 Mg Tab PO 10 mg BID [facility] Administration Metoprolol Succinate 50 mg 03/01/23 21:00 03/03/23 08:47 Metoprolol Succinate (Er) 50 Mg Tab.Er.24h PO 50 mg DAILY [facility] Administration Naloxone HCl 0.2 mg 03/01/23 14:04 Naloxone 0.4 Mg/Ml 1 Ml Vial IV Q2M PRN Opioid Reversal Intake and Output 03/03/23 03/03/23 03/03/23 06:59 14:59 22:59 Intake Total 37.487 0 Balance 37.487 0 Intake: Intake, IV Titration 37.487 0 Amount Heparin Sod,Pork in 0.45% 37.487 0 NaCl 25,000 unit In 0.45 % NaCl 1 250ml.bag @ 12 UNITS/KG/HR 6.408 mls/hr IV .Q24H [facility] Rx#: [id number] Other: Voiding Method Toilet Toilet Diaper Diaper # Voids 1 1 # Bowel Movements 1 Weight 53.4 kg 03/03/23 08:34 03/02/23 06:14
[2023-03-03] MEDS: APIXABAN 2.5 MG TABLET PO SCH (17:29)
[2023-03-03] MEDS: ATORVASTATIN 20 MG TAB PO SCH (20:25)
[2023-03-03] MEDS: lisinopriL 10 MG TAB PO SCH (20:25)
[2023-03-03] MEDS: ACETAMINOPHEN TAB 325 MG TAB PO PRN (20:25)
--- NOTE | 2023-03-03 23:35 | EEG ---
ELECTROENCEPHALOGRAM REPORT CLINICAL HISTORY: This is an 82-year-old woman with altered mental status. The video EEG is obtained to evaluate for seizure epileptiform activity. A routine 21-channel EEG with video using the 10/20 electrode placement system. The patient is not on any antiepileptic drugs. DESCRIPTION: Wakefulness is only obtained. During awake, the posterior-dominant rhythm consists of [id number] voltage of 8 to 9 hertz activity. There is no physiological stage 2 sleep architecture. There is no focal slowing. INTERICTAL AND ICTAL: None. ACTIVATION PROCEDURE: Photic stimulation did not evoke a posterior driving response. There is no abnormality during the photic stimulation. Hyperventilation is not performed. CLINICAL INTERPRETATION: This is a normal routine EEG. There is no focal slowing, epileptiform discharge, or seizure on the EEG. A normal routine EEG does not rule underlying epilepsy. Clinical correlation is recommended. CECILIA / THU: [id number] / MTDD
[2023-03-04 07:32] LABS: Chol/HDL Ratio 2.12 Ratio; LDL Cholesterol,Calculated 73.8 mg/dL (0.0-131.0)
[2023-03-04] MEDS: METOPROLOL SUCCINATE (ER) 50 MG TAB.ER.24H PO SCH (09:36)
[2023-03-04] MEDS: MEMANTINE 10 MG TAB PO SCH ×2 (09:36→20:16)
[2023-03-04] MEDS: DONEPEZIL 10 MG TAB PO SCH ×2 (09:36→20:15)
[2023-03-04] MEDS: levETIRAcetam 500 MG TAB PO SCH (09:36)
[2023-03-04] MEDS: APIXABAN 2.5 MG TABLET PO SCH ×2 (09:36→20:16)
[2023-03-04] MEDS: CHOLECALCIFEROL 25 MCG (1000 IU) TABLET PO SCH (09:36)
--- NOTE | 2023-03-04 10:48 | CA ---
Transthoracic Echo Report Name: Finoa Linn Age: 82 Gender: F : 1940 Exam Date: 03/04/2023 08:58 Exam Location: [facility] Ht (in): 62 Wt (lb): 117 Ordering Physician: Fransisco Jasso MD Attending/Referring Phys: Multiple Wire Sawyer Isamar Paul RDCS Procedure CPT: Indications: stroke Cardiac Hx: Technical Quality: Good Contrast 1: Total Dose (mL): Contrast 2: Total Dose (mL): MEASUREMENTS (Male / Female) Normal Values 2D ECHO LV Diastolic Diameter PLAX 4.2 cm 4.2 - 5.9 / 3.9 - 5.3 cm LV Systolic Diameter PLAX 2.3 cm IVS Diastolic Thickness 0.9 cm 0.6 - 1.0 / 0.6 - 0.9 cm LVPW Diastolic Thickness 0.9 cm 0.6 - 1.0 / 0.6 - 0.9 cm LV Relative Wall Thickness 0.4 RV Internal Dim ED PLAX 2.0 cm LA Systolic Diameter LX 3.5 cm 3.0 - 4.0 / 2.7 - 3.8 cm LV Diastolic Volume MOD 4C 43.1 cm??? LV Systolic Volume MOD 4C 27.3 cm??? LV Ejection Fraction MOD 4C 36.6 % LV Cardiac Index MOD 4C 1003.3 cm???/min???m??? LV Diastolic Length 4C 5.8 cm LV Systolic Length 4C 5.4 cm LV Diastolic Volume MOD 2C 39.6 cm??? LV Systolic Volume MOD 2C 25.0 cm??? LV Ejection Fraction MOD 2C 36.8 % LV Cardiac Index MOD 2C 927.1 cm???/min???m??? LV Diastolic Length 2C 6.8 cm LV Systolic Length 2C 6.1 cm LA Volume 35.7 cm??? 18 - 58 / 22 - 52 cm??? LA Volume Index 23.4 cm???/m??? 16 - 28 cm???/m??? M-MODE Aortic Root Diameter MM 2.4 cm MV E Point Septal Separation 0.9 cm AV Cusp Separation MM 1.6 cm DOPPLER AV Peak Velocity 165.4 cm/s AV Peak Gradient 10.9 mmHg MV Area PHT 5.3 cm??? MV Deceleration Time 142.6 ms TR Peak Velocity 248.9 cm/s TR Peak Gradient 24.8 mmHg Right Ventricular Systolic Press 39.8 mmHg FINDINGS Left Ventricle Left ventricular ejection fraction is estimated at 40 %. Left ventricular cavity size normal. Left ventricular wall thickness normal. Patient is in atrial fibrillation Right Ventricle Normal right ventricular size. Mild pulmonary hypertension. Right Atrium Normal right atrial size. Left Atrium Normal left atrial size. Mitral Valve Structurally normal mitral valve. Trace mitral regurgitation. Aortic Valve Trileaflet aortic valve. No aortic valve stenosis or regurgitation. Tricuspid Valve Structurally normal tricuspid valve. Mild tricuspid regurgitation. Pulmonic Valve Pulmonic valve not well visualized. Pericardium No clearcut effusion probable fat pad anteriorly Aorta Normal size aortic root and proximal ascending aorta. CONCLUSIONS Left ventricle is normal size with mild to moderate global decrease in contractility. Patient is in atrial fibrillation. There is mild pulmonary hypertension. Mild mitral and tricuspid regurgitation. Anterior echo free space is a fat pad probably no clearcut pericardial effusion Previewed by: Dr. Britt Rey MD (Electronically Signed) Final Date: 04 March 2023 10:47
--- NOTE | 2023-03-04 12:44 | MR ---
EXAMINATION TYPE: MR brain wo con DATE OF EXAM: 03/04/2023 COMPARISON: CT brain 03/01/2023 HISTORY: Confusion. CONTRAST: Performed utilizing 0 mL intravenous Gadobutrol gadolinium contrast. TECHNIQUE: Multiplanar, multiecho imaging on a 3.0 Jennifer magnet is performed through the brain. Stud y is not performed within 24 hours of arrival to the hospital. The craniovertebral junction is normal. The pituitary is normal. Diffusion-weighted imaging is performed. There is a punctate focus of periventricular hyperintensity adjacent to the medial portion left posterior horn lateral ventricle, series 303 image 136 beats acu te ischemic change. White matter changes are evident within the right medial brainstem and periventricular white matter h ypodensity is present, likely on the basis of chronic white matter ischemic changes. Ventricles and sulci are appropriate for the patient age. IMPRESSION: 1. There is an acute punctate ischemic type change posterior medial left occipital horn lateral ventr icle. 2. Patchy chronic appearing periventricular matter ischemic-type change
[2023-03-04 13:37] VITALS: BMI 21.4
--- NOTE | 2023-03-04 14:31 | P.PN ---
Subjective Progress Note Date: 03/04/23 HISTORY OF PRESENTING ILLNESS 81-year-old with history of dementia, chronic atrial fibrillation on anti- cognition with Eliquis. Prior history of carotid endarterectomy on right side Patient is awake but not oriented to time place and person. History is provided by the at bedside. reports that 2 days ago on 03/01/2023 patient woke up early in the morning and when he went out to look for the patient he did not find her in the bed so he called for 911. Patient was found around 700 feet outside of the house around the [facility] media. She was found on floor face down. She had bruises throughout her body. On admission she was afebrile, labs shows a TSH of 0.017. Sodium 141 cooperation 5.3, creatinine 0.7, hemoglobin 14. Procal was 0.4 and elevated Her ECG showed rate controlled atrial fibrillation 03/04 Patient has been in atrial fibrillation with controlled ventricular rate. Patient was started on eliquis 2.5 mg and maintained on metoprolol XL and atorvastatin. Heart rate is in the 80s and 90s, blood pressure 131/76, pulse ox 95% on room air. Echocardiogram reveals left ventricular normal size with [id number] global decrease in contractility. Mild pulmonary hypertension. Mild mitral and tricuspid regurgitation. EF at 40%. PHYSICAL EXAMINATION Vital signs reviewed. Head: Normocephalic. Eyes: Sclerae nonicteric. Neck: Brisk carotid upstroke, no jugular venous distention. Lungs: Clear to auscultation. Heart: Regular rate and rhythm, S1-S2, no S3, no murmur or rub. Extremities: No edema, intact distal pulses. ASSESSMENT Unwitnessed fall Encephalopathy Delirium on dementia Chronic atrial fibrillation Prior history of carotid endarterectomy right side PLAN Continue Eliquis 2.5 mg twice a day, atorvastatin 20 mg daily Continue metoprolol XL 50 mg daily Nurse practitioner note has been reviewed, I agree with the documented findings and plan of care. Patient was seen and examined. Objective - Vital Signs Vital signs: Vital Signs Temp 97.5 F L 03/04/23 08:15 Pulse 107 H 03/04/23 08:15 Resp 17 03/04/23 08:15 BP 138/87 03/04/23 08:15 Pulse Ox 98 03/04/23 08:15 FiO2 Intake & Output 03/03/23 03/04/23 03/04/23 18:59 06:59 18:59 Intake Total 73.205 118 Output Total 300 Balance 73.205 -300 118 Weight 53.1 kg Intake: Intake, IV Titration 73.205 Amount Diltiazem 125 mg In 26.667 Sodium Chloride 0.9% 100 ml @ 5 MG/HR 5 mls/hr IV .Q24H [facility] Rx#:[id number] Heparin Sod,Pork in 0.45% 46.538 NaCl 25,000 unit In 0.45 % NaCl 1 250ml.bag @ 12 UNITS/KG/HR 6.408 mls/hr IV .Q24H [facility] Rx#: [id number] Oral 118 Output: Urine 300 Other: Voiding Method Toilet Toilet Diaper Diaper # Voids 1 # Bowel Movements 1 - Labs CBC & Chem 7: 03/03/23 08:34 03/02/23 06:14 Labs: Abnormal Lab Results - Last 24 Hours (Table) 03/02/23 03/03/23 Range/Units 09:25 13:54 APTT 104.5 H* (22.0-30.0) sec HDL Cholesterol 92.00 H (40.00-60.00) mg/dL
--- NOTE | 2023-03-04 14:39 | P.PN ---
Subjective Progress Note Date: 03/04/23 I am following-up with patient and she is accompanied with her and daughter's who state she is at baseline. No new neurological issues. She denies of any headache. Objective - Vital Signs Vital signs: Vital Signs Temp 97.5 F L 03/04/23 08:15 Pulse 107 H 03/04/23 08:15 Resp 17 03/04/23 08:15 BP 138/87 03/04/23 08:15 Pulse Ox 98 03/04/23 08:15 FiO2 Intake & Output 03/03/23 03/04/23 03/04/23 18:59 06:59 18:59 Intake Total 73.205 118 Output Total 300 Balance 73.205 -300 118 Weight 53.1 kg 53.1 kg Intake: Intake, IV Titration 73.205 Amount Diltiazem 125 mg In 26.667 Sodium Chloride 0.9% 100 ml @ 5 MG/HR 5 mls/hr IV .Q24H [facility] Rx#:[id number] Heparin Sod,Pork in 0.45% 46.538 NaCl 25,000 unit In 0.45 % NaCl 1 250ml.bag @ 12 UNITS/KG/HR 6.408 mls/hr IV .Q24H [facility] Rx#: [id number] Oral 118 Output: Urine 300 Other: Voiding Method Toilet Toilet Toilet Diaper Diaper Diaper # Voids 1 # Bowel Movements 1 - Exam General: Lying in bed and is not in acute distress. Neuro: Patient is awake, alert, oriented to self. She could not tell me current time or place (per daughters is baseline). Seems agitated but is baseline and not worse. She is able to name her 's name correctly. Also correctly named some objects correctly (pen and glasses). Is following simple commands. No facial weakness. Is lifting all extremities above gravity and seems equally. Some of the workup during his hospital visit consisted of: She is afebrile. WBC is within normal limits. Plasma Lactic acid on initial presentation is 8.2 and latest 1.9 TSH: 0.773 Vitamin B12: 272 Lipid panel: TG 146, cholestrol 195, LDL 73, HDL 92 Creatinine, sodium, calcium, magnesium are within normal limits CT of the head is reported as no acute intracranial CT abnormality. Atrophy and chronic microvascular ischemic disease CT cervical spine is reported as no evidence of cervical spine fracture or traumatic, limited. Mild to moderate cervical spondylosis. Groundglass infiltrates in the right upper lobe, may reflect infection/inflammatory process. Mild patulous upper thoracic esophagus, achalasia or distal esophagus process is considered. Routine EEG: Is normal. Carotid duplex: <50% of bilateral carotid. 2D echo: LV normal sizre with mild to moderate global decrease. Patient is in atrial fib. MRI Brain it is reported as acute punctate ischemic type change posterior medial left occipital horn lateral ventricle. Patchy chronic appearing periventricular matter ischemic-type change. - Labs CBC & Chem 7: 03/03/23 08:34 03/02/23 06:14 Labs: Abnormal Lab Results - Last 24 Hours (Table) 03/02/23 03/03/23 Range/Units 09:25 13:54 APTT 104.5 H* (22.0-30.0) sec HDL Cholesterol 92.00 H (40.00-60.00) mg/dL Assessment and Plan Assessment: This is an 82-year-old woman with history of dementia who was found outside of her home on 03/01/2023 700 feet away from the her home on the floor face down. She has history of atrial fibrillation on Eliquis and history of remote right carotid endarterectomy. Presentation she had elevated lactic acid level. Encephalopathy of unknown etiology. On MRI Brain has small punctate diffusion restriction of left medial occipital probable suggestive of acute stroke. I spoke with reading radiologist (Dr. Gomez) and recommended MRI w/ contrast to rule out enhancement for ?mass in that same territory. EEG is normal. I cannot rule out her episode was not due to worsening of dementia or patient looking for her who was not in bed?--currently back to baseline. Very low normal vitamin B12 of 272 Dementia and at baseline she is oriented to 1 (self). Atrial fibrillation on Eiquis Syncopal episode 2 years ago but did not receive any medical attention since was very brief and happened while at [employer] in which she was a bending down on sure she had a vasovagal other causes such as a seizure History of right carotid stenosis s/p Carotid endarectomy about 15 years ago Plan: I spoke with Dr. Gomez (reading radiologist) and recommended MRI w/ to rule out mass in that same territory. I stopped Keppra since no conclusive seizure. She is on eliquis 2.5mg bid for A-fib. If she has acute stroke can start her in addition on ASA 81mg daily. She is on Lipitor 20 mg daily at bedtime. Patient is on vitamin B12 supplement 1000 g by mouth. Qhouer4 hour neuro checks Cardiac monitoring PT OT and PLACEMENT SPECIALIST are consulted Recommend to follow-up with neurologist as outpatient (Dr. Parsons) within 1-2 weeks and if has further confusion or worsening recommend repeating EEG to rule out any seizure or discharges. Cardiology is consulted We'll defer the rest of the medical measure the primary team For DVT prophylaxis Eliquis. Plan discussed and length with the patient's , her daughters who are at bedside and her nurse Time with Patient: Less than 30
--- NOTE | 2023-03-04 15:25 | MR ---
EXAMINATION TYPE: MR brain w con DATE OF EXAM: 03/04/2023 3:05 PM CLINICAL INDICATION:Female, 82 years old with history of confusion. rule out mass; PHH, Confusion. R ule out mass. Brain WO done earlier today COMPARISON: Same day 03/04/2023. TECHNIQUE: Postcontrast T1-weighted imaging only in multiple planes. IV Contrast: 5.5 cc Gadavist FINDINGS: Postcontrast imaging which is no evidence for abnormal postcontrast enhancement. There remains scatte red white matter changes better characterized on same day FLAIR imaging. The zuri demonstrates findin gs of remote injury. IMPRESSION: 1. No evidence of intracranial mass abnormal enhancement. 2. Extensive white matter changes with remote right zuri injury.
--- NOTE | 2023-03-04 15:59 | FL ---
EXAMINATION TYPE: FL barium swallow DATE OF EXAM: 03/04/2023 COMPARISON: None HISTORY: Dysphagia TECHNIQUE: A double air contrast esophagram study is performed. FINDINGS: Contrast passes through the esophagus without stenosis. No intraluminal or extramural defect is evide nt. Note is made of presbyesophagus with secondary and tertiary contractions. In the horizontal drink ing position there is incomplete stripping esophageal bolus beyond the midportion. IMPRESSION: 1. Presbyesophagus. 2. Incomplete stripping of the esophageal bolus in the horizontal drinking position
[2023-03-04] MEDS ORDERED: ASPIRIN 81 MG PO STA (16:20)
[2023-03-04] MEDS ORDERED: ASPIRIN 81 MG PO SCH (16:30)
[2023-03-04] MEDS: CYANOCOBALAMIN 1,000 MCG/ML 1 ML VIAL IM SCH (18:36)
[2023-03-04] MEDS: ATORVASTATIN 20 MG TAB PO SCH (20:16)
[2023-03-04] MEDS: lisinopriL 10 MG TAB PO SCH (20:16)
[2023-03-04 20:41] LABS: Glucose,Whole Blood 96 mg/dL (70-110)
[2023-03-04] MEDS ORDERED: DILTIAZEM 125 MG in SODIUM CHLORIDE 0.9% 100 ML IV SCH (21:45)
--- NOTE | 2023-03-05 05:47 | P.PN ---
Subjective This is a pleasant 82 years old female with past medical history of dementia, atrial fibrillation, hypertension, hyperlipidemia, syncope Patient's was her early this morning at 8:00 and they called police and found her about quarter mile from the house on the floor for about an hour per staff, Patient herself is confused to time place and person but she couldn't recognize her family members, she follows commands and she can say she is hungry or to be cleaned per staff. However patient denies any specific complaints for me no chest pain or dyspnea. No change in urine or bowel habits. No fever. No headache dizziness weakness or numbness currently. Patient vitals stable, she is hypothermic on admission She has unremarkable CBC, INR, BMP, LFTs. Potassium 4.3 BUN of about the 6 Computed tomography scan of the brain is negative for acute process CT of the head and neck showing no aneurysm or stenosis. No fracture of the cer vical spine. Groundglass infiltrate in the right upper lobe with moderately patulous upper thoracic esophagus suspicious for achalasia EKG showing atrial fibrillation's with a rate of 101 03/02/2023 Patient is a pleasantly confused, she was able to walk to the bathroom but probably, of course with the help of the staff Cardizem drip was running at 2.5 mg/h with heart rate 80 per minute, we'll don't stop Cardizem drip and keep monitoring heart rate, she is on metoprolol 50 mg, she is not on anticoagulation. Patient is still not eating much, we are going to encourage her to eat. We will change her IV fluids to half-normal saline at 50 mL/h and give one-time dose of IV Lasix for fluid overload. Hand x-ray showing soft tissue swelling no fracture. Labs look stable. Broadcalcitonin slightly elevated at 0.45 We going to repeat urinalysis and chest x-ray. Patient with no fever or leukocytosis and no antibiotics for now Discussed with the bedside nurse. Seroquel 12.5 for agitation and vitamin B12 replacement therapy initiated. Discussed with the staff 03/03/2023 Patient is still confused, she does not know where she is at, time or person, and baseline she is oriented 1 as per family. However she is more calm after adding Seroquel 12.5 mg. Patient was started on Cardizem drip for her A. fib, last night metoprolol 25 mg was provided but protected still was not control she was placed back on Cardizem drip and today her metoprolol XL was increased to 75 mL daily. Heparin drip was started, CT of the brain was negative for acute process but showing cerebral atrophy Repeat chest x-ray today showing no acute findings, urine analysis is unremarkable. Broadcalcitonin 0.45 Lactic acid came back to normal at 1.9 Patient currently on D5 half-normal saline at 50 mL per hour Patient is not eating much, therefore going to order a barium swallow. Speech evaluation tomorrow Also cardiology and neurology consult Discussed with the staff 03/04/23 Surgeon comment., No specific complaint Patient is eating better today as per staff. Bottom swallow:showing presbyesophagus and incomplete stripping of the esophageal bolus in the horizontal drinking position We'll discontinue IV fluids. Patient also been evaluated for acute stroke, MRI of the brain with contrast showing no mass. Neurologist recommended aspirin, we going to give one dose and check CBC tomorrow. Patient is already an Nando, data mining analyst on the case will keep monitoring her heart rate Cardiology following for her A. fib. Currently heart rate controlled 1 vitamin B12 replacement therapy Objective - Vital Signs Vital signs: Vital Signs Temp 97.5 F L 03/04/23 08:15 Pulse 107 H 03/04/23 14:00 Resp 17 03/04/23 14:00 BP 138/87 03/04/23 08:15 Pulse Ox 98 03/04/23 08:15 FiO2 Intake & Output 03/03/23 03/04/23 03/04/23 18:59 06:59 18:59 Intake Total 73.205 598 Output Total 300 Balance 73.205 -300 598 Weight 53.1 kg 53.1 kg Intake: Intake, IV Titration 73.205 Amount Diltiazem 125 mg In 26.667 Sodium Chloride 0.9% 100 ml @ 5 MG/HR 5 mls/hr IV .Q24H [facility] Rx#:[id number] Heparin Sod,Pork in 0.45% 46.538 NaCl 25,000 unit In 0.45 % NaCl 1 250ml.bag @ 12 UNITS/KG/HR 6.408 mls/hr IV .Q24H [facility] Rx#: [id number] Oral 598 Output: Urine 300 Other: Voiding Method Toilet Toilet Toilet Diaper Diaper Diaper # Voids 1 2 # Bowel Movements 1 - Exam -GENERAL: The patient is awake, confused, not in any acute distress. Well developed, well nourished. HEENT: Pupils are round and equally reacting to light. EOMI. No scleral icterus. No conjunctival pallor. Normocephalic, atraumatic. No pharyngeal erythema. No thyromegaly. CARDIOVASCULAR: S1 and S2 present. No murmurs, rubs, or gallops. PULMONARY: Chest is clear to auscultation, no wheezing , no crackles. ABDOMEN: Soft, nontender, nondistended, normoactive bowel sounds. No palpable organomegaly. MUSCULOSKELETAL: No joint swelling or deformity. EXTREMITIES: No cyanosis, clubbing, or pedal edema. NEUROLOGICAL: Gross neurological examination did not reveal any focal deficits. SKIN: No rashes. no petechiae. - Labs CBC & Chem 7: 03/03/23 08:34 03/02/23 06:14 Labs: Abnormal Lab Results - Last 24 Hours (Table) 03/02/23 Range/Units 09:25 HDL Cholesterol 92.00 H (40.00-60.00) mg/dL Assessment and Plan Assessment: Altered mental status most likely related to her worsening dementia Acute stroke Fall on the floor for about one hour as per staff A. fib and RVR Anorexia Dementia Right upper lung lobe groundglass opacity Right middle lung nodule Paroxysmal atrial fibrillation Bruises in both knees and posterior scalp laceration Plan: Discontinue IV fluids and encourage eating continue with metoprolol 75 mg may increase the dose as needed. However patient currently on 50 mg only data mining analyst on the case Neurology consult following the patient for acute stroke, we will give one dose of aspirin per neurologist recommendation and check hemoglobin tomorrow, further recommendation per neurologist Continue with vitamin B12 replacement therapy Seroquel when necessary Labs and medication were reviewed.. Continue same treatment. Continue with symptomatic treatment. Resume home medication. Monitor labs and vitals. DVT and GI prophylaxis. Further recommendations as per clinical course of the patient DVT prophylaxis: Subcutaneous heparin GI Prophylaxis: Pepcid PT/OT: Pending Prognosis is guarded
[2023-03-05 06:29] LABS: Glucose,Whole Blood 93 mg/dL (70-110)
[2023-03-05 07:39] LABS: Anisocytosis Slight; Basophils % (A) 1 %; Eosinophils # (A) 0.1 k/uL (0-0.7); Eosinophils % (A) 2 %; HCT 43.4 % (34.0-46.0); HGB 13.7 gm/dL (11.4-16.0); Hypochromasia Slight; Lymphocytes # (A) 1.3 k/uL (1.0-4.8); Lymphocytes % (A) 16 %; MCH 28.2 pg (25.0-35.0); MCHC 31.6 g/dL (31.0-37.0); MCV 89.3 fL (80.0-100.0); Mean Platelet Volume 8.1; Monocytes # (A) 0.3 k/uL (0-1.0); Monocytes % (A) 4 %; Neutrophils # (A) 6.4 k/uL (1.3-7.7); Neutrophils % (A) 77 %; Platelet Count 213 k/uL (150-450); RBC 4.86 m/uL (3.80-5.40); RDW 16.1 % (11.5-15.5); WBC 8.3 k/uL (3.8-10.6)
[2023-03-05 08:12] LABS: African American GFR (CKD) >90 (>60 ml/min/1.73 sqM); Anion Gap 9 mmol/L; Blood Urea Nitrogen 16 mg/dL (7-17); Calcium 9.2 mg/dL (8.4-10.2); Carbon Dioxide 27 mmol/L (22-30); Chloride 107 mmol/L (98-107); Glucose 93 mg/dL (74-99); Non-African American GFR(CKD) 82 (>60 ml/min/1.73 sqM); Potassium 3.3 mmol/L (3.5-5.1); Sodium 143 mmol/L (137-145)
[2023-03-05] MEDS: APIXABAN 2.5 MG TABLET PO SCH (08:51)
[2023-03-05] MEDS: METOPROLOL SUCCINATE (ER) 50 MG TAB.ER.24H PO SCH (08:51)
[2023-03-05] MEDS ORDERED: CYANOCOBALAMIN 500 MCG TAB PO SCH (09:00)
[2023-03-05] MEDS: CHOLECALCIFEROL 25 MCG (1000 IU) TABLET PO SCH (09:15)
[2023-03-05] MEDS: MEMANTINE 10 MG TAB PO SCH (09:16)
[2023-03-05] MEDS: DONEPEZIL 10 MG TAB PO SCH (09:16)
[2023-03-05] MEDS ORDERED: ASPIRIN 81 MG PO SCH (09:30)
[2023-03-05 10:56] VITALS: RESP 17
[2023-03-05 11:43] VITALS: BP 130/79; PULSE 85; TEMP 98.2
--- NOTE | 2023-03-05 12:24 | P.PN ---
Subjective Progress Note Date: 03/05/23 I am following-up with patient and she is accompanied with her and daughters. Who states she is about the same. No new neurological issues. Objective - Vital Signs Vital signs: Vital Signs Temp 98.2 F 03/05/23 11:38 Pulse 85 03/05/23 11:38 Resp 17 03/05/23 11:38 BP 130/79 03/05/23 11:38 Pulse Ox 95 03/05/23 11:38 FiO2 Intake & Output 03/04/23 03/05/23 03/05/23 18:59 06:59 18:59 Intake Total 718 58 Balance 718 58 Weight 53.1 kg 53 kg Intake: Intake, IV Titration 58 Amount Diltiazem 125 mg In 58 Sodium Chloride 0.9% 100 ml @ 5 MG/HR 5 mls/hr IV .[facility] Rx#:[id number] Oral 718 0 Other: Voiding Method Toilet Toilet Toilet Diaper Diaper Diaper # Voids 2 1 # Bowel Movements 1 1 - Exam General: Lying in bed and is not in acute distress. Neuro: Patient is awake, alert, oriented to self. She could not tell me current time or place (per daughters is baseline). At rare times get agitated but is baseline and not worse. Is following simple commands. No facial weakness. Is lifting all extremities above gravity and seems equally. Some of the workup during his hospital visit consisted of: She is afebrile. WBC is within normal limits. Plasma Lactic acid on initial presentation is 8.2 and latest 1.9 TSH: 0.773 Vitamin B12: 272 Lipid panel: TG 146, cholestrol 195, LDL 73, HDL 92 Creatinine, sodium, calcium, magnesium are within normal limits CT of the head is reported as no acute intracranial CT abnormality. Atrophy and chronic microvascular ischemic disease CT cervical spine is reported as no evidence of cervical spine fracture or traumatic, limited. Mild to moderate cervical spondylosis. Groundglass infiltrates in the right upper lobe, may reflect infection/inflammatory process. Mild patulous upper thoracic esophagus, achalasia or distal esophagus process is considered. Routine EEG: Is normal. Carotid duplex: <50% of bilateral carotid. 2D echo: LV normal sizre with mild to moderate global decrease. Patient is in atrial fib. MRI Brain w/o it is reported as acute punctate ischemic type change posterior medial left occipital horn lateral ventricle. Patchy chronic appearing periventricular matter ischemic-type change. MRI Brain w/ is reported as no evidence of intracranial mass or abnormal enhancement. 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 - Labs CBC & Chem 7: 03/05/23 07:04 03/05/23 07:04 Labs: Abnormal Lab Results - Last 24 Hours (Table) 03/05/23 03/05/23 Range/Units 07:04 07:04 RDW 16.1 H (11.5-15.5) % Potassium 3.3 L (3.5-5.1) mmol/L Assessment and Plan Assessment: This is an 82-year-old woman with history of dementia who was found outside of her home on 03/01/2023 700 feet away from the her home on the floor face down. She has history of atrial fibrillation on Eliquis and history of remote right carotid endarterectomy. Presentation she had elevated lactic acid level. Acute to subacute ischemic stroke over the left medial occipital is small punctate in size. Has history of atrial fibrillation. Transient Encephalopathy possibly due to multifactorial: Underly recent stroke in addition could be due to her dementia. EEG is normal. Very low normal vitamin B12 of 272 Dementia and at baseline she is oriented to 1 (self). Atrial fibrillation on Eiquis Syncopal episode 2 years ago but did not receive any medical attention since was very brief and happened while at [employer] in which she was a bending down on sure she had a vasovagal other causes such as a seizure History of right carotid stenosis s/p Carotid endarectomy about 15 years ago Plan: She is on home dose of eliquis 2.5mg bid for A-fib. Because of acute stroke, A SA 81mg daily is added. She is on Lipitor 20 mg daily at bedtime. Patient is on vitamin B12 supplement 1000 g by mouth. Qhouer4 hour neuro checks Cardiac monitoring PT OT and MARKETING PROJECT [employer] are consulted Recommend to follow-up with neurologist as outpatient (Dr. Parsons) within 1-2 weeks and if has further confusion or worsening recommend repeating EEG to rule out any seizure or discharges. Cardiology is consulted. She is to follow-up with her contracting analyst Dr. Page as outpatient. We'll defer the rest of the medical measure the primary team For DVT prophylaxis Eliquis. Plan discussed and length with the patient's , her daughters who are at bedside and her nurse. There is no further neurological work-up. Will sign off. Please reconsult if needed. Time with Patient: Less than 30
--- NOTE | 2023-03-05 15:09 | P.DS ---
Providers Date of admission: 03/01/23 14:04 Expected date of discharge: 03/05/23 Attending physician: Rakan Estrella Consults: 03/02/23 13:45 Consult Physician Routine Consulting Provider: Ney Wells Consult Reason/Comments: afib rvr on cardizem drip Do you want consulting provider notified?: Yes 03/03/23 08:30 Consult Physician Routine Consulting Provider: Fransisco Jasso Consult Reason/Comments: AMS/confusion Do you want consulting provider notified?: Yes Primary care physician: Rakan Estrella - Discharge Diagnosis(es) (1) Acute CVA (cerebrovascular accident) Status: Acute (2) Atrial fibrillation with RVR Status: Acute (3) Dementia Status: Acute (4) Fall Status: Acute (5) Hypothermia Status: Acute Hospital Course: This is a pleasant 82 years old female with past medical history of dementia, atrial fibrillation, hypertension, hyperlipidemia, syncope Patient's was her early this morning at 8:00 and they called police and found her about quarter mile from the house on the floor for about an hour. Patient was worked up by neurology felt that patient's stroke was very mild and that this most likely was due to underlying dementia as she is only alert to person only. She was clear for discharge and follow-up with Dr. Parsons as outpatient. Patient Condition at Discharge: Stable Plan - Discharge Summary Discharge Rx Participant: No New Discharge Prescriptions: New RX: Aspirin 81 mg PO DAILY #0 tab No Action RX: Cholecalciferol [Vitamin D3 (25 Mcg = 1000 Iu)] 50 mcg PO DAILY RX: Atorvastatin [Lipitor] 20 mg PO HS RX: Metoprolol Succinate (ER) [Toprol XL] 50 mg PO DAILY #30 tablet RX: Benazepril [Lotensin] 10 mg PO HS RX: Apixaban [Eliquis] 2.5 mg PO BID #60 tab RX: Memantine HCl 10 mg PO BID Donepezil HCl [Aricept] 10 mg PO BID Discharge Medication List RX: Atorvastatin [Lipitor] 20 mg PO HS 02/08/21 [History] RX: Benazepril [Lotensin] 10 mg PO HS 02/08/21 [History] RX: Cholecalciferol [Vitamin D3 (25 Mcg = 1000 Iu)] 50 mcg PO DAILY 02/08/21 [History] RX: Apixaban [Eliquis] 2.5 mg PO BID #60 tab 02/09/21 [Rx] RX: Metoprolol Succinate (ER) [Toprol XL] 50 mg PO DAILY #30 tablet 02/09/21 [Rx] RX: Memantine HCl 10 mg PO BID 03/06/22 [History] Donepezil HCl [Aricept] 10 mg PO BID 03/01/23 [History] RX: Aspirin 81 mg PO DAILY #0 tab 03/05/23 [Rx] Follow up Appointment(s)/Referral(s): Satnam Page MD [STAFF PHYSICIAN] - 1 Week (office will call you with appt time) Rakan Estrella DO [Primary Care Provider] - 1-2 days (March 10 2:20) Ulises Parsons DO [STAFF PHYSICIAN] - 2 Weeks (April 01 4:00) Patient Instructions/Handouts: A-fib (Atrial Fibrillation) (DC), Dehydration (DC), Fall Prevention for Older Adults (DC), Self Care Measures After a Stroke (DC), Stroke (DC) Activity/Diet/Wound Care/Special Instructions: heat healthy diet activity is restricted till you see your doctor we recommend sitting up if eating or drinking with aspiration precaution Discharge Disposition: HOME WITH HOME HEALTH SERVICES
--- NOTE | 2023-03-06 07:22 | P.PN ---
Subjective Progress Note Date: 03/05/23 HISTORY OF PRESENTING ILLNESS 81-year-old with history of dementia, chronic atrial fibrillation on anti- cognition with Eliquis. Prior history of carotid endarterectomy on right side Patient is awake but not oriented to time place and person. History is provided by the at bedside. reports that 2 days ago on 03/01/2023 patient woke up early in the morning and when he went out to look for the patient he did not find her in the bed so he called for 911. Patient was found around 700 feet outside of the house around the [facility]. She was found on floor face down. She had bruises throughout her body. On admission she was afebrile, labs shows a TSH of 0.017. Sodium 141 cooperation 5.3, creatinine 0.7, hemoglobin 14. Procal was 0.4 and elevated Her ECG showed rate controlled atrial fibrillation 1/ Patient has been in atrial fibrillation with controlled ventricular rate. Patient was started on eliquis 2.5 mg and maintained on metoprolol XL and atorvastatin. Heart rate is in the 80s and 90s, blood pressure 131/76, pulse ox 95% on room air. Echocardiogram reveals left ventricular normal size with [id number] global decrease in contractility. Mild pulmonary hypertension. Mild mitral and tricuspid regurgitation. EF at 40%. 1/ Patient's heart rate was elevated during the night and patient was started back on Cardizem drip. At the time of ER evaluation, heart rate is running in the 80s and 90s and she does have history of bradycardia as well. Cardizem drip will be discontinued. Patient will be maintained on the Toprol-XL at 50 mild grams daily and continue anticoagulation with eliquis. Blood pressure 130/79, pulse ox 95% on room air. Patient noted to have some thrombophlebitis of the left arm to be evaluated by attending.. PHYSICAL EXAMINATION Vital signs reviewed. Head: Normocephalic. Eyes: Sclerae nonicteric. Neck: Brisk carotid upstroke, no jugular venous distention. Lungs: Clear to auscultation. Heart: Regular rate and rhythm, S1-S2, no S3, no murmur or rub. Extremities: No edema, intact distal pulses. ASSESSMENT Unwitnessed fall Encephalopathy Delirium on dementia Chronic atrial fibrillation Prior history of carotid endarterectomy right side PLAN Continue Eliquis 2.5 mg twice a day, atorvastatin 20 mg daily Continue metoprolol XL 50 mg daily Patient is cleared from cardiology for discharge. Nurse practitioner note has been reviewed, I agree with the documented findings and plan of care. Patient was seen and examined. Objective - Vital Signs Vital signs: Vital Signs Temp 98.2 F 03/05/23 11:38 Pulse 85 03/05/23 11:38 Resp 17 03/05/23 11:38 BP 130/79 03/05/23 11:38 Pulse Ox 95 03/05/23 11:38 FiO2 Intake & Output 03/05/23 03/06/23 03/06/23 18:59 06:59 18:59 Intake Total 58 Balance 58 Intake: Intake, IV Titration 58 Amount Diltiazem 125 mg In 58 Sodium Chloride 0.9% 100 ml @ 5 MG/HR 5 mls/hr IV .Q24H [facility] Rx#:[id number] Oral 0 Other: Voiding Method Toilet Diaper # Bowel Movements 1 - Labs CBC & Chem 7: 03/05/23 07:04 03/05/23 07:04 Labs: Abnormal Lab Results - Last 24 Hours (Table) 03/05/23 03/05/23 Range/Units 07:04 07:04 RDW 16.1 H (11.5-15.5) % Potassium 3.3 L (3.5-5.1) mmol/L
== END 2023-03-05 12:25 | disposition home health service (06) | DRG 884 ==
LOC: EC 09:01 → 3SCARD 14:04
PROVIDERS: ADMIT Family Medicine; ATTEND Family Medicine
DX: F03.90 Unspecified dementia, unspecified severity, without behavioral disturbance, psychotic disturbance, mood disturbance, and anxiety (principal); I63.9 Cerebral infarction, unspecified; I48.20 Chronic atrial fibrillation, unspecified; I27.20 Pulmonary hypertension, unspecified; G31.9 Degenerative disease of nervous system, unspecified; G93.49 Other encephalopathy; E87.20 Acidosis, unspecified; F05 Delirium due to known physiological condition; T68.XXXA Hypothermia, initial encounter; I80.8 Phlebitis and thrombophlebitis of other sites; I10 Essential (primary) hypertension; E86.0 Dehydration; I08.1 Rheumatic disorders of both mitral and tricuspid valves; M47.812 Spondylosis without myelopathy or radiculopathy, cervical region; S00.83XA Contusion of other part of head, initial encounter; E78.5 Hyperlipidemia, unspecified; S80.02XA Contusion of left knee, initial encounter; S80.01XA Contusion of right knee, initial encounter; E87.70 Fluid overload, unspecified; K22.89 Other specified disease of esophagus; R00.1 Bradycardia, unspecified; R91.1 Solitary pulmonary nodule; W18.30XA Fall on same level, unspecified, initial encounter; X31.XXXA Exposure to excessive natural cold, initial encounter; Z79.01 Long term (current) use of anticoagulants; Z87.891 Personal history of nicotine dependence; Z86.79 Personal history of other diseases of the circulatory system; Z79.899 Other long term (current) drug therapy
CPT/HCPCS: 36415; 70450; 70551; 70552; 71045; 72125; 72170; 74220; 80048; 80053; 80061; 81001; 82140; 82550; 82607; 83605; 83735; 84145; 84443; 84484; 85025; 85610; 85730; 93005; 93306; 93880; 94760; 95816; 96361; 96365; 96366; 96375; 99291

== ENCOUNTER 2024-02-16 09:31 | Observation (INO) | payer MEDICARE, BC ==
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
[2024-02-16 10:52] LABS: Basophils % (A) 0 %; Eosinophils # (A) 0.1 k/uL (0-0.7); Eosinophils % (A) 1 %; HCT 47.3 % (34.0-46.0); HGB 14.8 gm/dL (11.4-16.0); Hypochromasia Slight; Lymphocytes % (A) 14 %; MCH 29.4 pg (25.0-35.0); MCHC 31.2 g/dL (31.0-37.0); MCV 94.2 fL (80.0-100.0); Mean Platelet Volume 7.4; Monocytes # (A) 0.2 k/uL (0-1.0); Monocytes % (A) 3 %; Neutrophils # (A) 5.5 k/uL (1.3-7.7); Neutrophils % (A) 80 %; Platelet Count 224 k/uL (150-450); RBC 5.02 m/uL (3.80-5.40); RDW 14.1 % (11.5-15.5); WBC 6.9 k/uL (3.8-10.6)
[2024-02-16 11:01] LABS: ALT 18 U/L (4-34); AST 24 U/L (14-36); African American GFR (CKD) 73 (>60 ml/min/1.73 sqM); Albumin 4.5 g/dL (3.5-5.0); Alkaline Phosphatase 102 U/L (38-126); Anion Gap 6 mmol/L; Blood Urea Nitrogen 21 mg/dL (7-17); Calcium 9.9 mg/dL (8.4-10.2); Carbon Dioxide 33 mmol/L (22-30); Chloride 106 mmol/L (98-107); Glucose 113 mg/dL (74-99); Non-African American GFR(CKD) 63 (>60 ml/min/1.73 sqM); Potassium 3.8 mmol/L (3.5-5.1); Sodium 145 mmol/L (137-145); Total Bilirubin 0.5 mg/dL (0.2-1.3); Total Protein 6.8 g/dL (6.3-8.2)
[2024-02-16 11:03] LABS: INR 1.1 (<1.2); Partial Thromboplastin Time 24.6 sec (22.0-30.0); Prothrombin Time 11.8 sec (10.0-12.5)
--- NOTE | 2024-02-16 11:19 | XR ---
EXAMINATION TYPE: XR chest 2V DATE OF EXAM: 02/16/2024 11:13 AM COMPARISON: 03/03/2023 CLINICAL INDICATION: Female, 83 years old with history of Altered mental status, TECHNIQUE: Frontal and lateral views of the chest are obtained. FINDINGS: There is no focal air space opacity, pleural effusion, or pneumothorax seen. The cardiac silhouette size is within normal limits. The osseous structures are intact. IMPRESSION: No acute cardiopulmonary process. [facility], , 02/16/2024 11:17 AM
--- NOTE | 2024-02-16 11:39 | CT ---
EXAMINATION TYPE: CT brain wo con CT DLP: 1096.4 mGycm, Automated exposure control for dose reduction was used. DATE OF EXAM: 02/16/2024 10:14 AM COMPARISON: MRI brain 03/04/2023, CT brain C-spine 02/02/2023, CT brain 10/01/2012 CLINICAL INDICATION:Female, 83 years old with history of Altered mental status, hallucinations TECHNIQUE: Brain: Multiple axial CT images of the brain were obtained without IV contrast. . Coronal and sagitta l reformats reviewed. FINDINGS: Brain: Extra-axial spaces: No abnormal extra-axial fluid collections. Ventricular system: Within normal limits Cerebral parenchyma: Cerebral atrophy. No acute intraparenchymal hemorrhage or mass effect. The leiva -white junction is well differentiated. Confluent hypoattenuating areas are seen within the periventr icular subcortical white matter. Cerebellum: Unremarkable. Mass effect: No evidence of midline shift. Intracranial vasculature: Atherosclerotic calcifications of the intracranial vessels. Soft tissues: Normal. Calvarium/osseous structures: No depressed skull fracture. Paranasal sinuses and mastoid air cells: Clear Visualized orbits: Bilateral aphakia IMPRESSION: 1. No acute intracranial process. 2. Nonspecific white matter changes, likely secondary to chronic small vessel ischemic disease. [facility], , 02/16/2024 11:17 AM
[2024-02-16 13:18] LABS: Appearance,Urine Cloudy (Clear); Bilirubin,Urine Negative (Negative); Blood,Urine Negative (Negative); Color,Urine Yellow; Glucose,Urine (UA) Negative (Negative); Ketones,Urine Negative (Negative); Leukocyte Esterase,Urine Negative (Negative); Mucus,Urine Rare /hpf; Nitrite,Urine Negative (Negative); Protein,Urine Negative (Negative); RBC,Urine 1 /hpf (0-5); Specific Gravity,Urine 1.028 (1.001-1.035); Squamous Epithelial Cell,Urine 14 /hpf (0-4); WBC,Urine 2 /hpf (0-5)
[2024-02-16 13:19] LABS: Amphetamine Screen,Urine Not Detected (NotDetected); Barbiturate Screen,Urine Not Detected (NotDetected); Benzodiazepines Screen,Urine Not Detected (NotDetected); Cocaine Screen,Urine Not Detected (NotDetected); Methadone Screen, Urine Not Detected (NotDetected); Opiate Screen,Urine Not Detected (NotDetected); Oxycodone Screen, Urine Not Detected (NotDetected); Phencyclidine Screen,Urine Not Detected (NotDetected); Tricyclic Antidepressant,Urine Not Detected (NotDetected); Urn Cannabinoid Scrn Not Detected (NotDetected)
[2024-02-16] MEDS: SODIUM CHLORIDE 0.9% 1,000 ML IV STA (13:45)
[2024-02-16] MEDS ORDERED: HYDROcodone/APAP 5-325MG 1 EACH TAB PO PRN (14:44)
[2024-02-16] MEDS ORDERED: ACETAMINOPHEN TAB 325 MG TAB PO PRN (14:44)
[2024-02-16] MEDS ORDERED: ONDANSETRON 4 MG/2 ML VIAL IVP PRN (14:44)
[2024-02-16] MEDS ORDERED: NALOXONE 0.4 MG/ML 1 ML VIAL IV PRN (14:44)
[2024-02-16] MEDS: DILTIAZEM 125 MG in SODIUM CHLORIDE 0.9% 100 ML IV SCH (15:03)
[2024-02-16] MEDS: DILTIAZEM DRIP BOLUS FROM BAG 1 MG SOLN IV ONE (15:04)
[2024-02-16] MEDS: APIXABAN 2.5 MG TABLET PO SCH (17:43)
[2024-02-16] MEDS: ATORVASTATIN 20 MG TAB PO SCH (21:12)
[2024-02-16] MEDS: MEMANTINE 10 MG TAB PO SCH (21:13)
[2024-02-16] MEDS: lisinopriL 5 MG TAB PO SCH (21:13)
[2024-02-16] MEDS: DONEPEZIL 10 MG TAB PO SCH (21:13)
[2024-02-17 07:58] VITALS: RESP 16
[2024-02-17] MEDS: PANTOPRAZOLE 40 MG/10 ML VIAL IV SCH (08:44)
[2024-02-17] MEDS: METOPROLOL SUCCINATE (ER) 100 MG TAB.ER.24H PO SCH (08:44)
[2024-02-17] MEDS ORDERED: METOPROLOL SUCCINATE (ER) 50 MG TAB.ER.24H PO SCH (09:00)
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
[2024-02-17 14:16] VITALS: BP 143/91; PULSE 85; TEMP 97.3
--- NOTE | 2024-02-17 17:12 | CA ---
Transthoracic Echo Report Name: Fiona Linn Age: 83 Gender: F : 1940 Exam Date: 02/17/2024 11:05 Exam Location: [facility] Ht (in): 62 Wt (lb): 152 Ordering Physician: Rhea Regalado Attending/Referring Phys: [id number], [place] Cut Order Hand Lizeth Chacon RDCS Procedure CPT: Indications: LV Function, afib Cardiac Hx: Technical Quality: Good Contrast 1: Total Dose (mL): Contrast 2: Total Dose (mL): MEASUREMENTS (Male / Female) Normal Values 2D ECHO LV Diastolic Diameter PLAX 3.6 cm 4.2 - 5.9 / 3.9 - 5.3 cm LV Systolic Diameter PLAX 2.6 cm IVS Diastolic Thickness 0.9 cm 0.6 - 1.0 / 0.6 - 0.9 cm LVPW Diastolic Thickness 0.9 cm 0.6 - 1.0 / 0.6 - 0.9 cm LV Relative Wall Thickness 0.5 LVOT Diameter 1.6 cm LV Diastolic Volume MOD BP 50.6 cm??? 67 - 155 / 56 - 104 cm??? LV Systolic Volume MOD BP 19.8 cm??? 22 - 58 / 19 - 49 cm??? LV Ejection Fraction MOD BP 60.9 % >= 55 % LV Cardiac Index MOD BP 1367.3 cm???/min???m??? LV Diastolic Volume MOD 4C 57.3 cm??? LV Systolic Volume MOD 4C 23.1 cm??? LV Ejection Fraction MOD 4C 59.7 % LV Cardiac Index MOD 4C 1519.7 cm???/min???m??? LV Diastolic Length 4C 6.0 cm LV Systolic Length 4C 4.7 cm LV Diastolic Volume MOD 2C 42.5 cm??? LV Systolic Volume MOD 2C 16.9 cm??? LV Ejection Fraction MOD 2C 60.2 % LV Cardiac Index MOD 2C 1134.2 cm???/min???m??? LV Diastolic Length 2C 5.6 cm LV Systolic Length 2C 4.7 cm LA Volume 62.2 cm??? 18 - 58 / 22 - 52 cm??? LA Volume Index 35.4 cm???/m??? 16 - 28 cm???/m??? Ascending Aorta Diameter 2.9 cm DOPPLER AV Peak Velocity 181.1 cm/s AV Peak Gradient 13.1 mmHg AV Mean Velocity 134.6 cm/s AV Mean Gradient 8.0 mmHg AV Velocity Time Integral 40.0 cm LVOT Peak Velocity 61.3 cm/s LVOT Peak Gradient 1.5 mmHg LVOT Velocity Time Integral 12.2 cm LVOT Stroke Volume 25.5 cm??? LVOT Stroke Volume Index 15.0 ml/m??? LVOT Cardiac Index 1131.7 cm???/min???m??? AV Area Cont Eq vti 0.6 cm??? AV Area Cont Eq pk 0.7 cm??? MV Peak Velocity 140.9 cm/s MV Peak Gradient 7.9 mmHg MV Mean Velocity 69.6 cm/s MV Mean Gradient 2.6 mmHg MV Velocity Time Integral 22.5 cm TR Peak Velocity 260.7 cm/s TR Peak Gradient 27.2 mmHg Right Atrial Pressure 15.0 mmHg Pulmonary Artery Systolic Pressu 42.2 mmHg Right Ventricular Systolic Press 42.2 mmHg PV Peak Velocity 49.9 cm/s PV Peak Gradient 1.0 mmHg FINDINGS Left Ventricle Left ventricular ejection fraction is estimated at 55-60 %. Left ventricular cavity size normal. Left ventricular wall thickness normal. No obvious regional wall motion abnormalities. Right Ventricle Normal right ventricular size and function. Mild pulmonary hypertension. Right Atrium Mild right atrial dilatation. Left Atrium Mildly increased left atrial volume. Mildly increased left atrial area. Mitral Valve Mitral valve thickened. Mitral annular calcification. No evidence for mitral valve prolapse. No mitral stenosis. Mild mitral regurgitation. Aortic Valve Trileaflet aortic valve. Aortic valve sclerosis. No aortic valve stenosis or regurgitation. Tricuspid Valve Structurally normal tricuspid valve. No tricuspid stenosis. Mild tricuspid regurgitation. Pulmonic Valve Structurally normal pulmonic valve. No pulmonic stenosis. Mild pulmonic regurgitation. Pericardium No pericardial effusion. Echo free space anterior to the right ventricle likely represents a fat pad. Aorta Normal size aortic root and proximal ascending aorta. CONCLUSIONS Normal LV function Mild mitral regurgitation Previewed by: Dr. Hernan Cheng MD (Electronically Signed) Final Date: 17 February 2024 17:11
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
[2024-02-17] MEDS ORDERED: QUEtiapine 25 MG TAB PO SCH (21:00)
== END 2024-02-17 18:05 | disposition home health service (06) ==
LOC: EC 09:31 → 6NMEDSUR 15:44
PROVIDERS: ADMIT Family Medicine; ATTEND Family Medicine
DX: G30.9 Alzheimer's disease, unspecified (principal); F02.811 Dementia in other diseases classified elsewhere, unspecified severity, with agitation; I48.21 Permanent atrial fibrillation; I10 Essential (primary) hypertension; E78.5 Hyperlipidemia, unspecified; I42.9 Cardiomyopathy, unspecified; Z11.52 Encounter for screening for COVID-19; Z87.891 Personal history of nicotine dependence; Z79.01 Long term (current) use of anticoagulants; Z79.899 Other long term (current) drug therapy
CPT/HCPCS: 96366 ×3; 96375; 96376; 96365; 99285; 36415; 93005; 93306; 80053; 84443; 82607; 82140; 83605; 84484; 85025; 85610; 85730; 81001; 80306; 87636; 71046; 70450; G0378 ×2; J2470